=== PATIENT | male | born 1980 | race Caucasian/White ===

== ENCOUNTER 2017-08-29 03:00 | Inpatient (IN) | payer OTHER ==
[2017-08-29] MEDS ORDERED: SODIUM CHLORIDE 0.9% 500 ML INFUS.BAG IV ONE ×5 (03:04→06:54)
[2017-08-29] MEDS ORDERED: ONDANSETRON 4 MG/2 ML VIAL IVPB ONE (03:05)
--- NOTE | 2017-08-29 03:15 | PDOC ---
History of Present Illness - General Chief Complaint: Nausea/Vomiting Stated Complaint: NAUSEA/VOMITING Past History - Travel Traveled outside of the country in the last 30 days: No Close contact w/someone who was outside of country & ill: No - Past Medical History Allergies/Adverse Reactions: Allergies Allergy/AdvReac Type Severity Reaction Status Date / Time No Known Allergies Allergy Unverified 08/29/17 03:37 Home Medications: Ambulatory Orders NK [No Known Home Medication] 08/29/17 Review of Systems - Review of Systems Constitutional: Yes: Malaise. No: Symptoms Reported, See HPI, Chills, Diaphoresis, Fever, Loss of Appetite, Night Sweats, Weakness, Weight Stable, Unintentional Wgt. Loss, Unexplained wgt Loss, Other HEENTM: No: Symptoms Reported, See HPI, Eye Pain, Blurred Vision, Tearing, Recent change in vision, Double Vision, Cataracts, Ear Pain, Ocular Prothesis, Ear Discharge, Nose Pain, Nose Congestion, Tinnitus, Nose Bleeding, Hearing Loss , Throat Pain, Throat Swelling, Mouth Pain, Dental Problems, Difficulty Swallowing, Mouth Swelling, Other Respiratory: No: Symptoms reported, See HPI, Cough, Orthopnea, Shortness of Breath, SOB with Exertion, SOB at Rest, Stridor, Wheezing, Productive cough, Hemoptysis, Other Cardiac (ROS): No: Symptoms Reported, See HPI, Chest Pain, Edema, Irregular Heart Rate, Lightheadedness, Palpitations, Syncope, Chest Tightness, Other ABD/GI: Yes: Abdominal Distended, Diarrhea, Vomiting, Abdominal cramping. No: Symptoms Reported, See HPI, Abd. Pain w/ defecation, Blood Streaked Bowels, Constipated, Difficulty Swallowing, Nausea, Poor Appetite, Poor Fluid Intake, Rectal Bleeding, Indigestion, Tarry Stools, Other : No: Symptoms Reported, See HPI, Burning, Dysuria, Discharge, Frequency, Flank Pain, Hematuria, Incontinence, Pain, Urgency, Testicular Mass, Testicular Swelling, Lesions, Testicular Pain, Other Musculoskeletal: No: Symptoms Reported, See HPI, Back Pain, Gout, Joint Pain, Joint Swelling, Muscle Pain, Muscle Weakness, Neck Pain, Joint Stiffness, Other Integumentary: No: Symptoms Reported, See HPI, Bruising, Change in Color, Change in Hair/Nails, Dryness, Erythema, Flushing, Lesions, Lumps, Pallor, Pruritus, Rash, Sweating, Other Neurological: No: Symptoms reported, See HPI, Headache, Numbness, Paresthesia, Pre-Existing Deficit, Seizure, Tingling, Tremors, Weakness, Unsteady Gait, Ataxia, Dizziness, Other *Physical Exam - Physical Exam General Appearance: Yes: Nourished, Appropriately Dressed, Mild Distress, Obese HEENT: positive: EOMI, KURT, Normal ENT Inspection, Normal Voice, Symmetrical, TMs Normal, Pharynx Normal. 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 Family believes that pt has food poisoning. Pt has diffuse right sided abdominal pain. 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 Comes with girlfriend (also MR?) and her brother who is full mental development. They and patient tell me that his abdomen is no more distended than usual. Pt is overweight, but his abdomen seems distended to me. Pt is afebrile. He has vomited multiple times and watery diarrhea multiple times since after 10PM. Pt's labs show WBC of 25+; given his right sided tenderness I administered 1 dose of zosyn in case of obstruction/diverticulitis/colitis/ appendicitis. CT scan ordered. Pt vomited his oral contrast after drinking just one cup and cannot tolerate it. Pt will get a dry CT scan abd pelvis - tech just arrived 10 min ago to do the study. 08/29/17 05:46 Patient Name: MAT NEUMANN THIS IS A PRELIMINARY REPORT FROM [facility] DATE OF SERVICE: 2017-08-29 04:46:24 IMAGES: [id number] EXAM: CT ABDOMEN AND PELVIS without contrast HISTORY: Abdominal pain COMPARISON: None. FINDINGS: Lung bases are clear. The visualized cardiac chambers are normal size and configuration. The liver is lobulated, suggesting cirrhosis. Spleen is small. No ascites. Status post cholecystectomy without biliary duct dilation. Normal unenhanced pancreas, adrenal glands and kidneys. There are several dilated loops of small bowel measuring up to 3.9 cm suggesting a small bowel obstruction or focal ileus. No bowel inflammation. There is diffuse liquid stool and air throughout the colon. There is no aortic aneurysm. There is no significant retroperitoneal lymphadenopathy. The appendix is 7 mm in diameter, at the upper limit of normal there may be minimal inflammation. As mildly suspicious for appendicitis. The urinary bladder and prostate gland are normal. No pelvic free fluid is identified. There is no significant pelvic lymphadenopathy. IMPRESSION: Cirrhosis without findings for portal venous hypertension. Mild suspicion for appendicitis. Questionable small bowel obstruction or focal ileus without abscess, free air or discrete transition point. Diffuse liquid stool suggests a diarrheal illness. THIS DOCUMENT HAS BEEN ELECTRONICALLY SIGNED 08/29/17 06:22 MAT NEUMANN Addendum: There are tiny fat-containing umbilical and ventral hernias which may be minimally inflamed Surgeon Jarrod is aware of the patient. He states that he is coming in to see the patient. 08/29/17 06:26 Pt has a lactic acid elevation 2.5 Pt received 3 L in the first 3 hrs that he was here. He will be given a 4th Liter of saline. 08/29/17 06:54 Surgeon at the [facility]. Pt will be signed out to the day ER doctor, who will follow CXR and speak to surgical consult and get pt admitted/dispositioned. 08/29/17 06:58 Surgeon will discuss plan with day ER doctor. He is still assessing the patient. *DC/Admit/Observation/Transfer Diagnosis at time of Disposition: Sepsis, Fatty hernia of linea alba, Diarrhea, Vomiting, Tachycardia, Dehydration - Discharge Dispostion Condition at time of disposition: Guarded - Referrals Referrals: STAFF,NOT ON [Primary Care Provider] - - Patient Instructions - Post Discharge Activity
[2017-08-29 03:29] LABS: MCH 32.4 pg (25.7-33.7); MCHC 33.6 g/dl (32.0-35.9); MEAN CELL VOLUME 96.3 fl (80-96); MEAN PLT VOLUME 9.1 fl (7.5-11.1); PLATELET COUNT 300 K/MM3 (134-434); RDW 14.8 % (11.9-15.9); WHITE BLOOD COUNT 25.8 K/mm3 (4.0-10.0)
[2017-08-29 03:41] VITALS: BMI 38.7
[2017-08-29] MEDS ORDERED: PIPERACILLIN/TAZOB 3.375 GM/50 ML PRE-DOCKED IVPB ONE ×3 (03:50→12:51)
[2017-08-29] MEDS ORDERED: PIPERACILLIN/TAZOBACTAM 3.375 GM VIAL IVPB ONE (03:54)
[2017-08-29 04:45] LABS: ANION GAP 9 (8-16); CALCIUM 8.3 mg/dL (8.5-10.1); CO2 26 mmol/L (21-32); CREATININE 1.1 mg/dL (0.7-1.3); GLUCOSE,RANDOM 141 mg/dL (74-106); TOT PROT 7.2 g/dl (6.4-8.2)
[2017-08-29 04:46] LABS: ALBUMIN 3.8 g/dl (3.4-5.0); ALK PHOS 60 U/L (45-117); AMYLASE 30 U/L (25-115); BILIRUBIN,TOTAL 1.1 mg/dL (0.2-1.0); SGOT/AST 34 U/L (15-37); SGPT/ALT 56 U/L (12-78)
[2017-08-29 05:21] LABS: CPK 121 IU/L (39-308); TROPONIN I < 0.02 ng/ml (0.00-0.05)
[2017-08-29] MEDS ORDERED: LIDOCAINE HCL 2% JELLY (5 ML/TUBE) ONE (07:06)
[2017-08-29] MEDS ORDERED: ACETAMINOPHEN 1000 MG/100 ML VIAL (NON FORMULARY) IVPB ONE (07:19)
[2017-08-29] MEDS ORDERED: ACETAMINOPHEN INJECTION 100 ML IVPB ONE (07:20)
--- NOTE | 2017-08-29 07:21 | CONSULT ---
Consult Consult Specialty:: general surgery Referred by:: Deric Reason for Consultation:: abdominal pain - History of Present Illness Chief Complaint: nausea and vomiting after dinner last night History of Present Illness: 37yo male PMH mitral valve replacement, down sydrome, s/p cholecytectomy presents to ED with 7-8 episodes of nauesa and vomiting after dinner at 10pm. He reports having consumed some shellfish as well 2/4 people who consumed the same thing developed diarrhea to varying degrees. He has some associated abdominal pain that is diffuse. He has had some loose bowel movements. He has also been febrile and tachycardic since his presentation the the emergency department. he denies any chest pain, SOB, palpitations. we were asked to assess when the CT scan resulted with a prominent appendix. 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: Other (developmental delay ) Cardio/Vascular: Yes: Other (heart valve replacement) - Past Surgical History Past Surgical History: Yes: Valve Replacement - Alcohol/Substance Use Hx Alcohol Use: No History of Substance Use: reports: None - Smoking History Smoking history: Never smoked - Social History Place of : [facility] History of Recent Travel: No Home Medications - Allergies Allergies/Adverse Reactions: Allergies Allergy/AdvReac Type Severity Reaction Status Date / Time No Known Allergies Allergy Unverified 08/29/17 03:37 - Home Medications Home Medications: Ambulatory Orders NK [No Known Home Medication] 08/29/17 Review of Systems - Review of Systems Constitutional: reports: Fever Eyes: denies: Blurred Vision, Recent Change in Vision HENT: denies: Difficult Swallowing, Throat Pain Neck: denies: Lumps, Swollen Glands Cardiovascular: reports: Palpitations. denies: Chest Pain Respiratory: denies: Cough, SOB Gastrointestinal: reports: Abdominal Pain, Diarrhea. denies: Bloating Genitourinary: denies: Burning, Discharge Musculoskeletal: denies: Joint Pain, Joint Swelling Integumentary: denies: Lesions, Rash Endocrine: denies: Unexplained Weight Gain, Unexplained Weight Loss Psychiatric: denies: Anxiety, Depression Pain Intensity: 4 Physical Exam Vital Signs: Vital Signs Temperature 100.1 F H 08/29/17 06:30 Pulse Rate 108 H 08/29/17 06:30 Respiratory Rate 18 08/29/17 06:30 Blood Pressure 124/50 08/29/17 06:30 O2 Sat by Pulse Oximetry (%) 96 08/29/17 06:30 Vital Signs Period Temp Pulse Resp BP Sys/Emanuel Pulse Ox Last 24 Hr 98.7 F-100.1 F 108-118 14-18 101-139/50-64 92-98 Constitutional: Yes: Well Nourished, Calm, Diaphoresis, Mild Distress, Obese Eyes: Yes: Conjunctiva Clear, EOM Intact HENT: Yes: Atraumatic, Normocephalic Neck: Yes: Supple, Trachea Midline Cardiovascular: Yes: Regular Rate and Rhythm, Murmur, S1, S2 Respiratory: Yes: Regular, CTA Bilaterally Gastrointestinal: Yes: Abdomen, Obese, Distention, Hyperactive Bowel Sounds, Tenderness (diffuse), Vomiting, Other (supra umbilical hernia). No: Tenderness , Epigastrium, Tenderness, Rebound Musculoskeletal: Yes: Joint Swelling. No: Muscle Pain, Muscle Weakness Extremities: No: Cool, Cyanosis Edema: No Integumentary: Yes: Incision (well healed cholecystectomy port sites). No: Body Piercing, Tattoos Neurological: Yes: Alert, Oriented Psychiatric: Yes: Alert, Oriented Labs: CBC, BMP 08/29/17 02:48 08/29/17 02:48 Abnormal Lab Results 08/29/17 08/29/17 08/29/17 02:48 02:48 05:05 WBC 25.8 H MCV 96.3 H BUN 23 H Random Glucose 141 H Lactic Acid 2.5 H* Calcium 8.3 L Total Bilirubin 1.1 H CBC,CMP WBC 24.1 K/mm3 (4.0-10.8) H 08/29/17 06:40 RBC 4.42 M/mm3 (4.00-5.60) 08/29/17 06:40 Hgb 14.4 GM/dl (11.7-16.9) 08/29/17 06:40 Hct 42.9 % (35.4-49) 08/29/17 06:40 MCV 97.2 fl (80-96) H 08/29/17 06:40 MCH 32.5 pg (25.7-33.7) 08/29/17 06:40 MCHC 33.5 g/dl (32.0-35.9) 08/29/17 06:40 RDW 14.4 % (11.9-15.9) 08/29/17 06:40 Plt Count 273 K/MM3 (134-434) 08/29/17 06:40 MPV 9.6 fl (7.5-11.1) 08/29/17 06:40 Total Counted 100 08/29/17 02:48 Neutrophils % No Result Required. 08/29/17 06:40 Neutrophils % (Manual) 83.0 % (42.8-82.8) H 08/29/17 02:48 Band Neutrophils % 12.0 % 08/29/17 02:48 Lymphocytes % No Result Required. 08/29/17 06:40 Lymphocytes % (Manual) 2.0 % (8-40) L 08/29/17 02:48 Monocytes % (Manual) 3 % (3.8-10.2) L 08/29/17 02:48 Platelet Estimate Adequate 08/29/17 02:48 Sodium 138 mmol/L (136-145) 08/29/17 02:48 Potassium 4.4 mmol/L (3.5-5.1) 08/29/17 02:48 Chloride 103 mmol/L (98-107) 08/29/17 02:48 Carbon Dioxide 26 mmol/L (21-32) 08/29/17 02:48 Anion Gap 9 (8-16) 08/29/17 02:48 BUN 23 mg/dL (7-18) H 08/29/17 02:48 Creatinine 1.1 mg/dL (0.7-1.3) 08/29/17 02:48 Creat Clearance w eGFR > 60 (>60) 08/29/17 02:48 Random Glucose 141 mg/dL (74-106) H 08/29/17 02:48 Lactic Acid 2.5 mmol/L (0.4-2.0) H* 08/29/17 05:05 Calcium 8.3 mg/dL (8.5-10.1) L 08/29/17 02:48 Total Bilirubin 1.1 mg/dL (0.2-1.0) H 08/29/17 02:48 AST 34 U/L (15-37) 08/29/17 02:48 ALT 56 U/L (12-78) 08/29/17 02:48 Alkaline Phosphatase 60 U/L (45-117) 08/29/17 02:48 Creatine Kinase 121 IU/L (39-308) 08/29/17 02:48 Troponin I < 0.02 ng/ml (0.00-0.05) 08/29/17 02:48 Total Protein 7.2 g/dl (6.4-8.2) 08/29/17 02:48 Albumin 3.8 g/dl (3.4-5.0) 08/29/17 02:48 Total Amylase 30 U/L (25-115) 08/29/17 02:48 Lipase 85 U/L (73-393) 08/29/17 02:48 Imaging - Results X-ray: Image Reviewed Cat Scan: Report Reviewed, Image Reviewed (cholecystectomy clips, fat containg incisional hernia, prominent appendix) Problem List - Problems (1) Acute appendicitis Assessment/Plan: 37 yo male PMH heart valve as an infant, down's, s/p lap cholecystectomy 10 years ago presents with abdominal pain and vomiting after dinner last night. Reviewed the Ct scan with in house radiologist who feels that there may prominent appendix. NPO and IVF hydration/ resuscitation IV antibiotcs OR for Laparoscopic appendectomy Medical consult hospitalist Code(s): K35.80 - UNSPECIFIED ACUTE APPENDICITIS (2) Abdominal pain in male Code(s): R10.9 - UNSPECIFIED ABDOMINAL PAIN (3) Abdominal pain of unknown etiology Code(s): R10.9 - UNSPECIFIED ABDOMINAL PAIN (4) Vomiting Code(s): R11.10 - VOMITING, UNSPECIFIED (5) Dehydration Code(s): E86.0 - DEHYDRATION (6) Diarrhea Code(s): R19.7 - DIARRHEA, UNSPECIFIED
--- NOTE | 2017-08-29 08:01 | PDOC ---
*Physical Exam - Vital Signs Last Vital Signs Temp Pulse Resp BP Pulse Ox 100.1 F H 110 H 18 104/53 97 08/29/17 06:30 08/29/17 07:22 08/29/17 07:22 08/29/17 07:22 08/29/17 07:22 ED Treatment Course - LABORATORY CBC & Chemistry Diagram: 08/29/17 06:40 08/29/17 06:40 - ADDITIONAL ORDERS Additional order review: Laboratory Results 08/29/17 08/29/17 08/29/17 05:05 02:48 02:48 Sodium 138 Potassium 4.4 Chloride 103 Carbon Dioxide 26 Anion Gap 9 BUN 23 H Creatinine 1.1 Creat Clearance w eGFR > 60 Random Glucose 141 H Lactic Acid 2.5 H* Calcium 8.3 L Total Bilirubin 1.1 H AST 34 ALT 56 Alkaline Phosphatase 60 Creatine Kinase 121 Troponin I < 0.02 Total Protein 7.2 Albumin 3.8 Total Amylase 30 Lipase 85 08/29/17 02:48 RBC 4.84 MCV 96.3 H MCHC 33.6 RDW 14.8 MPV 9.1 Neutrophils % No Result Required. Lymphocytes % No Result Required. - Medications Given in the ED: ED Medications Discontinued Medications Generic Name Dose Route Start Last Admin Trade Name Freq PRN Reason Stop Dose Admin Acetaminophen 1,000 mg 08/29/17 07:19 08/29/17 07:23 Ofirmev Injection - IVPB 08/29/17 07:20 1,000 mg ONCE ONE Administration Ondansetron HCl 4 mg 08/29/17 03:05 08/29/17 03:09 Zofran Injection IVPB 08/29/17 03:06 4 mg ONCE ONE Administration Piperacillin Sod/Tazobactam Sod 3.375 gm 08/29/17 03:50 08/29/17 04:03 Zosyn 3.375gm Ivpb (Pre-Docked) IVPB 08/29/17 03:51 3.375 gm ONCE ONE Administration Protocol Sodium Chloride 1,000 ml 08/29/17 03:04 08/29/17 03:09 Normal Saline - IV 08/29/17 03:05 1,000 ml ONCE ONE Administration Sodium Chloride 500 ml 08/29/17 04:51 08/29/17 04:52 Normal Saline - IV 08/29/17 04:52 500 ml ONCE ONE Administration Sodium Chloride 1,000 ml 08/29/17 06:52 08/29/17 06:56 Normal Saline - IV 08/29/17 06:53 1,000 ml ONCE ONE Administration Sodium Chloride 500 ml 08/29/17 06:53 08/29/17 06:00 Normal Saline - IV 08/29/17 06:54 500 ml ONCE ONE Administration Sodium Chloride 1,000 ml 08/29/17 06:54 08/29/17 05:00 Normal Saline - IV 08/29/17 06:55 1,000 ml ONCE ONE Administration Medical Decision Making - Medical Decision Making 08/29/17 08:[address] Garay, who has discussed with radiology. Will plan for OR for acute appendicitis. T&S and coags sent. Will cont to monitor. 08/29/17 10:54 Pt transported to [facility] for further management as per surgery. *DC/Admit/Observation/Transfer Diagnosis at time of Disposition: Tachycardia, Dehydration Sepsis Qualifiers: Sepsis type: sepsis due to unspecified organism Qualified Code(s): A41.9 - Sepsis, unspecified organism Appendicitis Qualifiers: Appendicitis type: acute appendicitis Acute appendicitis type: unspecified acute appendicitis type Qualified Code(s): K35.80 - Unspecified acute appendicitis - Discharge Dispostion Condition at time of disposition: Guarded Admit: Yes - Referrals Referrals: STAFF,NOT ON [Primary Care Provider] - - Patient Instructions - Post Discharge Activity
[2017-08-29 08:10] LABS: TOTAL CELLS COUNTED 100
[2017-08-29 08:11] LABS: PLATELET ESTIMATE ADEQUATE
[2017-08-29] MEDS ORDERED: morphine CARPU-JECT 2 MG/1 ML DISP.SYRIN IVPUSH PRN (08:25)
[2017-08-29] MEDS ORDERED: LACTATED RINGERS SOLUTION 1,000 ML/1,000 ML INFUS.BAG IV SCH (08:30)
--- NOTE | 2017-08-29 08:32 | HP ---
Admitting History and Physical - Admission Chief Complaint: abdominal pain History of Present Illness: 37yo male PMH mitral valve replacement, down sydrome, s/p cholecytectomy presents to ED with 7-8 episodes of nauesa and vomiting after dinner at 10pm. He reports having consumed some shellfish as well 2/4 people who consumed the same thing developed diarrhea to varying degrees. He has some associated abdominal pain that is diffuse. He has had some loose bowel movements. He has also been febrile and tachycardic since his presentation the the emergency department. he denies any chest pain, SOB, palpitations. we were asked to assess when the CT scan resulted with a prominent appendix. 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: Other (developmental delay ) Cardiovascular: Yes: Other (heart valve replacement) - Past Surgical History Past Surgical History: Yes: Valve Replacement - Smoking History Smoking history: Never smoked - Alcohol/Substance Use Hx Alcohol Use: No History of Substance Use: reports: None - Social History Usual Living Arrangement: Yes: With Spouse History of Recent Travel: No (visiting from [place]) Home Medications - Allergies Allergies/Adverse Reactions: Allergies Allergy/AdvReac Type Severity Reaction Status Date / Time No Known Allergies Allergy Unverified 08/29/17 03:37 - Home Medications Home Medications: Ambulatory Orders NK [No Known Home Medication] 08/29/17 Review of Systems - Review of Systems Constitutional: reports: Diaphoresis, Fever, Malaise. denies: Chills Eyes: denies: Blurred Vision, Recent Change in Vision HENT: denies: Difficult Swallowing, Throat Pain Neck: denies: Lumps, Swollen Glands Cardiovascular: reports: Palpitations. denies: Chest Pain Respiratory: denies: Cough, SOB Gastrointestinal: reports: Abdominal Pain, Bloating, Diarrhea Genitourinary: denies: Burning, Discharge, Testicular Pain Musculoskeletal: denies: Muscle Pain, Muscle Weakness Integumentary: denies: Lesions, Rash Neurological: denies: Headache, Syncope Endocrine: denies: Unexplained Weight Gain, Unexplained Weight Loss Hematology/Lymphatic: denies: Easily Bruised, Swollen Glands Psychiatric: denies: Anxiety, Depression Physical Examination Vital Signs: Vital Signs Temperature 100.1 F H 08/29/17 06:30 Pulse Rate 110 H 08/29/17 07:22 Respiratory Rate 18 08/29/17 07:22 Blood Pressure 104/53 08/29/17 07:22 O2 Sat by Pulse Oximetry (%) 97 08/29/17 07:22 Vital Signs Period Temp Pulse Resp BP Sys/Emanuel Pulse Ox Last 24 Hr 98.7 F-100.1 F 108-118 14-18 101-139/50-64 92-98 Intake & Output 08/28/17 08/29/17 08/29/17 23:59 07:59 15:59 Intake Total 3100 Balance 3100 Weight 240 lb Intake: IV 3000 SALINE 3000 IVPB 100 Other: Height 5 ft 6 in Body Mass Index (BMI) 38.7 Weight Measurement Method Est/Stated by Patient Constitutional: Yes: Calm, Diaphoresis, Mild Distress, Obese Eyes: Yes: Conjunctiva Clear, EOM Intact HENT: Yes: Atraumatic, Normocephalic Neck: Yes: Supple, Trachea Midline Cardiovascular: Yes: Regular Rate and Rhythm, Murmur, S1, S2 Respiratory: Yes: Regular, CTA Bilaterally Gastrointestinal: Yes: Normal Bowel Sounds, Soft, Tenderness (periumbilical) ...Rectal Exam: Yes: Deferred Renal/: No: CVA Tenderness - Left, CVA Tenderness - Right Breast(s): Yes: WNL, Left, Right Musculoskeletal: No: Muscle Pain, Muscle Weakness Edema: No Peripheral Pulses WNL: Yes Peripheral Pulses: Left Doralis Pedis: 2+, Right Dorsalis Pedis: 2+ Wound/Incision: Yes: Other (healed port sites cholecystectomy with supraumbilical hernia fat containing) Neurological: Yes: Alert, Oriented Psychiatric: Yes: Alert, Oriented Imaging - Results Chest X-ray: Report Reviewed, Image Reviewed Cat Scan: Report Reviewed, Image Reviewed Problem List - Problems (1) Acute appendicitis Assessment/Plan: 37 yo male PMH heart valve as an , down's, s/p lap cholecystectomy 10 years ago presents with abdominal pain and vomiting after dinner last night. Reviewed the Ct scan with in house radiologist who feels that there may prominent appendix. NPO and IVF hydration/ resuscitation IV antibiotcs OR for Laparoscopic appendectomy Medical consult hospitalist Code(s): K35.80 - UNSPECIFIED ACUTE APPENDICITIS (2) Abdominal pain in male Code(s): R10.9 - UNSPECIFIED ABDOMINAL PAIN (3) Abdominal pain of unknown etiology Code(s): R10.9 - UNSPECIFIED ABDOMINAL PAIN (4) Vomiting Code(s): R11.10 - VOMITING, UNSPECIFIED (5) Dehydration Code(s): E86.0 - DEHYDRATION (6) Diarrhea Code(s): R19.7 - DIARRHEA, UNSPECIFIED
[2017-08-29 08:44] LABS: MCH 32.5 pg (25.7-33.7); MCHC 33.5 g/dl (32.0-35.9); MEAN CELL VOLUME 97.2 fl (80-96); MEAN PLT VOLUME 9.6 fl (7.5-11.1); PLATELET COUNT 273 K/MM3 (134-434); RDW 14.4 % (11.9-15.9); WHITE BLOOD COUNT 24.1 K/mm3 (4.0-10.8)
[2017-08-29] MEDS ORDERED: SODIUM CHLORIDE 2,000 ML IV STA (08:55)
[2017-08-29 09:13] LABS: ALBUMIN 3.3 g/dl (3.5-5.0); ALK PHOS 40 U/L (32-92); ANION GAP 7 (8-16); BILIRUBIN,TOTAL 1.4 mg/dl (0.2-1.0); CALCIUM 7.5 mg/dl (8.4-10.2); CO2 23 mmol/L (22-28); CREATININE 1.1 mg/dl (0.6-1.3); GLUCOSE,RANDOM 133 mg/dl (74-106); SGOT/AST 28 U/L (10-42); SGPT/ALT 38 U/L (10-40); TOT PROT 5.8 g/dl (6.4-8.3)
[2017-08-29 09:29] LABS: PH,URINE 5.5 (4.5-8); URINE APPEARANCE Clear; URINE BILIRUBIN Negative (NEGATIVE); URINE BLOOD Negative (NEGATIVE); URINE GLUCOSE (UA) Negative (NEGATIVE); URINE KETONE Negative (NEGATIVE); URINE LEUK ESTERASE Negative (NEGATIVE); URINE NITRITE Negative (NEGATIVE); URINE PROTEIN Negative (NEGATIVE); URINE UROBILINOGEN 0.2 (0.2-1.0)
[2017-08-29 09:31] LABS: URINE COLOR YELLOW
[2017-08-29 09:38] LABS: PLATELET ESTIMATE ADEQUATE
[2017-08-29 10:01] LABS: ACTIVATED PTT 25.4 SECONDS (24.0-38.9)
[2017-08-29 10:11] LABS: INR 1.32 (0.82-1.09); PROTHROMBIN TIME (PATIENT) 14.7 SEC (10.2-13.0)
[2017-08-29] MEDS ORDERED: PIPERACILLIN/TAZOB 4.5 GM/100 ML PREMIX BAG IVPB ONE ×2 (10:27→14:56)
[2017-08-29] MEDS ORDERED: BUPIVACAINE HCL/PF 0.5% (5MG/ML) 10 ML VIAL ONE (11:23)
--- NOTE | 2017-08-29 11:59 | CONSULT ---
Consult - History of Present Illness History of Present Illness: 37 y/o male with h/o mr s/p vsd repair and mvr who presents with sudden onset of abdominal pain. 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: Other (developmental delay ) Cardio/Vascular: Yes: Other (heart valve replacemnt-vsd) - Past Surgical History Past Surgical History: Yes: Valve Replacement - Alcohol/Substance Use Hx Alcohol Use: No History of Substance Use: reports: None - Smoking History Smoking history: Never smoked - Social History History of Recent Travel: No (visiting from [place]) Home Medications - Allergies Allergies/Adverse Reactions: Allergies Allergy/AdvReac Type Severity Reaction Status Date / Time No Known Allergies Allergy Unverified 08/29/17 03:37 - Home Medications Home Medications: Ambulatory Orders NK [No Known Home Medication] 08/29/17 Review of Systems - Review of Systems Cardiovascular: denies: Chest Pain, Edema Respiratory: denies: SOB, SOB on Exertion Gastrointestinal: reports: Abdominal Pain Physical Exam Vital Signs: Vital Signs Temperature 99.1 F 08/29/17 10:20 Pulse Rate 111 H 08/29/17 10:20 Respiratory Rate 20 08/29/17 10:20 Blood Pressure 106/54 08/29/17 10:20 O2 Sat by Pulse Oximetry (%) 97 08/29/17 09:27 Cardiovascular: Yes: Regular Rate and Rhythm, Murmur Respiratory: Yes: Regular, CTA Bilaterally Gastrointestinal: Yes: Normal Bowel Sounds, Soft, Abdomen, Obese, Distention, Tenderness Labs: CBC, BMP 08/29/17 06:40 08/29/17 06:40 Imaging - Results X-ray: Report Reviewed Cat Scan: Report Reviewed Problem List - Problems (1) Acute appendicitis Assessment/Plan: IV ABX SURGICAL INTERVENTION TODAY MONITOR Code(s): K35.80 - UNSPECIFIED ACUTE APPENDICITIS (2) Sepsis Assessment/Plan: ABOVE Code(s): A41.9 - SEPSIS, UNSPECIFIED ORGANISM Qualifiers: Sepsis type: sepsis due to unspecified organism Qualified Code(s): A41.9 - Sepsis, unspecified organism (3) Heart valve replaced Assessment/Plan: ECHO MAYBE DONE POSTOP CARDIO Code(s): Z95.2 - PRESENCE OF PROSTHETIC HEART VALVE (4) H/O ventricular septal defect Code(s): Z87.74 - PERSONAL HISTORY OF CONGENITAL MALFORM OF HEART AND CIRC SYS (5) Abdominal pain in male Code(s): R10.9 - UNSPECIFIED ABDOMINAL PAIN Assessment/Plan NO ABSOLUTE CONTRAINDICATION FOR PROCEDURE
[2017-08-29] MEDS ORDERED: DEXAMETHASONE SOD PHOSPHATE 4 MG/1 ML VIAL ONE (12:10)
[2017-08-29] MEDS ORDERED: ROCURONIUM BROMIDE 50 MG/5 ML VIAL ONE (12:11)
[2017-08-29] MEDS ORDERED: fentaNYL CITRATE 250 MCG/5 ML VIAL ONE (12:11)
[2017-08-29] MEDS ORDERED: PROPOFOL 20 ML ONE ×2 (12:11)
[2017-08-29] MEDS ORDERED: SUCCINYLCHOLINE CHLORIDE 200 MG/10 ML VIAL ONE ×4 (12:11→12:12)
[2017-08-29] MEDS ORDERED: LIDOCAINE HCL/PF 2% SDV 5ML VIAL ONE (12:14)
[2017-08-29] MEDS ORDERED: ALBUMIN HUMAN 5% 250 ML IV SOLUTION IVPB ONE (12:52)
[2017-08-29] MEDS ORDERED: GLYCOPYRROLATE 0.2 MG/1 ML VIAL ONE ×3 (13:15→13:43)
[2017-08-29] MEDS ORDERED: NEOSTIGMINE METHYLSULFATE 0.5 MG/ML - 10 ML MDV ONE (13:15)
[2017-08-29] MEDS ORDERED: ALBUMIN HUMAN 5% 250 ML IV SOLUTION IVPB SCH (13:30)
[2017-08-29] MEDS ORDERED: ONDANSETRON 4 MG/2 ML VIAL IVPUSH PRN ×2 (14:05→14:55)
[2017-08-29] MEDS ORDERED: PROMETHAZINE HCL 25 MG/1 ML VIAL IVPUSH PRN (14:05)
[2017-08-29] MEDS ORDERED: LACTATED RINGERS SOLUTION 1,000 ML IV SCH ×2 (14:15→14:55)
--- NOTE | 2017-08-29 14:37 | OP ---
Operative Note - Note: Operative Date: 08/29/17 Pre-Operative Diagnosis: acute appendicitis Operation: Laparoscopic Appendectomy Findings: mid appendix started to leak sebastian pus during dissection Implants: none Surgeon: Jessee Garay Anesthesia: Local (marcaine 0.5% 10 ml) Specimens Removed: perforated appendix Estimated Blood Loss (mls): 15 Drains & Tubes with Location: CAROLYN size 10 flat Right para colic, hester, ngt Fluid Volume Replaced (mls): 2,000 Operative Report Dictated: Yes
[2017-08-29 15:28] LABS: MCH 33.1 pg (25.7-33.7); MCHC 33.7 g/dl (32.0-35.9); MEAN PLT VOLUME 9.1 fl (7.5-11.1); PLATELET COUNT 226 K/MM3 (134-434); RDW 15.2 % (11.9-15.9); WHITE BLOOD COUNT 22.3 K/mm3 (4.0-10.0)
[2017-08-29] MEDS ORDERED: PIPERACILLIN/TAZOB 4.5 GM/100 ML PRE-DOCKED IVPB ONE (15:30)
[2017-08-29] MEDS ORDERED: PIPERACILLIN/TAZOB 3.375 GM 3.375 GM/50 ML BAG IVPB ONE ×2 (15:45→18:00)
[2017-08-29 15:51] LABS: ALBUMIN 3.1 g/dl (3.4-5.0); ALK PHOS 40 U/L (45-117); ANION GAP 5 (8-16); BILIRUBIN,TOTAL 1.2 mg/dL (0.2-1.0); CO2 26 mmol/L (21-32); GLUCOSE,RANDOM 128 mg/dL (74-106); MAGNESIUM 1.7 mg/dL (1.8-2.4); SGOT/AST 20 U/L (15-37); SGPT/ALT 37 U/L (12-78); TOT PROT 5.6 g/dl (6.4-8.2)
[2017-08-29 15:52] LABS: PHOSPHOROUS 2.6 mg/dL (2.5-4.9)
[2017-08-29 15:53] LABS: TROPONIN I < 0.02 ng/ml (0.00-0.05)
[2017-08-29 15:54] LABS: CALCIUM 6.4 mg/dL (8.5-10.1)
[2017-08-29] MEDS ORDERED: MAGNESIUM SULF 50% (8.12 MEQ/2 ML-1 GM VIAL) IVPB ONE (16:27)
[2017-08-29] MEDS ORDERED: MAGNESIUM SULF 50% (8.12 MEQ/2 ML-1 GM VIAL) ONE (16:38)
[2017-08-29 17:12] LABS: PLATELET ESTIMATE ADEQUATE; REACTIVE LYMPHOCYTES 1 % (0-80); TOTAL CELLS COUNTED 100
[2017-08-29] MEDS ORDERED: CALCIUM GLUCONATE 10% - 1,000 MG/10 ML VIAL IVPB ONE (17:30)
[2017-08-29] MEDS ORDERED: PT OWN MED DRAWER 7, Y5N ONE (17:39)
[2017-08-29] MEDS ORDERED: PIPERACILLIN/TAZOB 3.375 GM 3.375 GM in DEXTROSE 5%-WATER - 50 ML IVPB ONE (18:00)
--- NOTE | 2017-08-29 18:24 | CON.ID ---
Consult Consult Specialty:: Infectious Disease Reason for Consultation:: Acute appendicitis - History of Present Illness Chief Complaint: nausea/vomiting/abd pain History of Present Illness: Patient seen and examined. All notes/lab and radiology results noted. Case discussed earlier with Dr. Luque. This is a 37yo male with Downs Syndrome with PMH of a repaired VSD during childhood, mitral valve replacement, cholecystectomy who presented with c/o nausea, vomiting, and abdominal pain which began after dinner the night before. He also reported loose BMs. In the ER he was noted to be febrile, tachycardic with an elevated wbc. CT Abd revealed inflammation of the appendix along with other nonspecific findings. Pt was started on antibiotics and taken to the OR for lap appendectomy and was noted to have purulent drainage from the appendix with dissection. Currently patient is in the ICU, alert,without acute distress. 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 ) Cardio/Vascular: Yes: Other (heart valve replacemnt-vsd) Pulmonary: No: Asthma, Bronchitis, Cancer, COPD, O2 Dependent, Pneumonia, Previously Intubated, Pulmonary Embolus, Pulmonary Fibrosis, Sleep Apnea, Other Gastrointestinal: Yes: Other (s/p cholecystectomy) Renal/: No: Renal Failure, Renal Inusuff, BPH, Cancer, Hematuria, Hemodialysis , Neurogenic Bladder, Renal Calculi, UTI, Other Heme/Onc: No: Anemia, B12 Deficiency, Bleeding Disorder, Cancer, Current Chemotherapy, Current Radiation Therapy, Hemochromatosis, Hypercoaguable State, Myeloproliferative Synd, Sickle Cell Disease, Sickle Cell Trait, Thrombocytopenia, Other Infectious Disease: No: AIDS, C-Diff, Herpes Zoster, HIV, MRSA, STD's, Tuberculosis, VREF, Other Psych: No: Addictions, Anxiety, Bipolar, Depression, Panic, Psychosis, Schizophrenia, Other Musculoskeletal: No: Bursitis, Chronic low back pain, Hemiparesis, Hemiplegia, Osteoarthritis, Paraplegia, Other Rheumatology: No: Fibromyalgia, Gout, Lupus, Rheumatoid Arthritis, Sarcoidosis, Vasculitis, Other ENT: No: Allergic Rhinitis, Sinusitis, Other Endocrine: No: Juan's Disease, [place]'s Disease, Diabetes Insipidus, Diabetes Mellitus, Hyperparathyroidism, Hyperthyroidism, Hypothyroidism, Osteopenia, SIADH, Other Dermatology: No: Basal Cell, Cellulitis, Eczema, Melanoma, Psoriasis, Squamous Cell, Other - Past Surgical History Past Surgical History: Yes: Cholecystectomy, Valve Replacement - Alcohol/Substance Use Hx Alcohol Use: No History of Substance Use: reports: None - Smoking History Smoking history: Never smoked - Social History History of Recent Travel: No (visiting from [place]) Home Medications - Allergies Allergies/Adverse Reactions: Allergies Allergy/AdvReac Type Severity Reaction Status Date / Time No Known Allergies Allergy Unverified 08/29/17 03:37 - Home Medications Home Medications: Ambulatory Orders NK [No Known Home Medication] 08/29/17 Family Disease History - Family Disease History Family History: Unable to Obtain Review of Systems - Review of Systems Constitutional: reports: Fever Eyes: reports: No Symptoms. denies: Blind Spots, Blurred Vision, Double Vision , Eye Pain, Floaters, Photophobia, Recent Change in Vision, Other HENT: reports: No Symptoms. denies: Difficult Swallowing, Ear Discharge, Ear Pain, Epistaxis, Gingival Bleeding, Hearing Loss, Mouth Swelling, Nasal Congestion, Ocular Prosthesis, Throat Pain, Toothache, Ringing in Ears, Other Neck: reports: No Symptoms. denies: Decreased ROM, Lumps, Pain on Movement, Stiffness, Swollen Glands, Tenderness, Other Cardiovascular: denies: No Symptoms, Chest Pain, Edema, Palpitations, Shortness of Breath, Other Respiratory: denies: No Symptoms, Cough, Exercise Intolerance, Hemoptysis, Orthopnea, PND, Snoring, SOB, SOB on Exertion, Wheezing, Other Gastrointestinal: reports: Abdominal Pain (Rt sided), Nausea, Vomiting Genitourinary: denies: No Symptoms, Burning, Discharge, Dysuria, Flank Pain, Frequency, Hematuria, Incontinence, Lesions, Menses, Pain, Testicular Mass, Testicular Pain, Testicular Swelling, Urgency, Vaginal Bleeding, Other Breasts: denies: No Symptoms Reported, See HPI, Breast Implants, Discharge from Nipple, Lumps, Pain, Skin Changes, Other Musculoskeletal: denies: No Symptoms, Back Pain, Crepitus, Decreased ROM, Extremity Pain, Joint Pain, Joint Swelling, Muscle Pain, Muscle Cramps, Muscle Weakness, Other Integumentary: denies: No Symptoms, Blister, Bruising, Change in Color, Eczema, Erythema, Incision, Lesions, Lump, Pallor, Pruritis, Rash, Wound, Other Neurological: denies: No Symptoms, Change in LOC, Change in Speech, Confusion, Dizziness, Headache, Incoordination, Numbness, Parasthesia, Pre-Existing Deficit , Seizure, Syncope, Tremors, Unsteady Gait, Weakness, Other Endocrine: denies: No Symptoms, Excessive Sweating, Flushing, Increased Hunger, Increased Thirst, Intolerance to Cold, Intolerance to Heat, Unexplained Weight Gain, Unexplained Weight Loss, Other Hematology/Lymphatic: denies: No Symptoms, Easily Bruised, Excessive Bleeding, Swollen Glands, Other Psychiatric: denies: No Symptoms, Altered Sleep Pattern, Anxiety, Depression, Hallucinations, Panic, Paranoia, Suicidal, Other Physical Exam Vital Signs: Vital Signs Temperature 99 F 08/29/17 15:20 Pulse Rate 87 08/29/17 16:00 Respiratory Rate 21 08/29/17 16:00 Blood Pressure 126/62 08/29/17 16:00 O2 Sat by Pulse Oximetry (%) 97 08/29/17 15:20 Constitutional: Yes: No Distress, Calm Eyes: Yes: WNL, Conjunctiva Clear HENT: Yes: WNL, Atraumatic, Normocephalic Neck: Yes: Supple Cardiovascular: Yes: Tachycardia. No: WNL, Regular Rate and Rhythm, Bradycardia , Pulse Irregular, Bruit, JVD, Gallop, Murmur, Rub, S1, S2, S3, S4, Varicosities , Other Respiratory: Yes: CTA Bilaterally. No: WNL, Regular, Accessory Muscle Use, Bradypnea, Omid-Ball, Cough, Diminished, Dullness, Hyperresonant, Intubated , [place], Mechanically Ventilated, On BiPap, On Nasal O2, On Venti-Mask, Orthopnea, Poor Air Entry, Rales, Rhonchi, SOB, SOB on Exertion, Stridor, Tachypnea, Wheezes, Other Gastrointestinal: Yes: Distention, Tenderness (RT lower abd), Other (CAROLYN drain with serosanguinous fluid) Renal/: Yes: [place] Present Musculoskeletal: Yes: WNL Extremities: Yes: WNL Edema: No Integumentary: Yes: WNL Wound/Incision: Yes: Dressing Dry and Intact Neurological: Yes: Alert Psychiatric: Yes: Alert Labs: CBC, BMP 08/29/17 14:40 08/29/17 14:40 CMP Sodium 141 mmol/L (136-145) 08/29/17 14:40 Potassium 4.4 mmol/L (3.5-5.1) 08/29/17 14:40 Chloride 110 mmol/L (98-107) H 08/29/17 14:40 Carbon Dioxide 26 mmol/L (21-32) 08/29/17 14:40 Anion Gap 5 (8-16) L 08/29/17 14:40 BUN 18 mg/dL (7-18) D 08/29/17 14:40 Creatinine 1.0 mg/dL (0.7-1.3) 08/29/17 14:40 Creat Clearance w eGFR > 60 (>60) 08/29/17 14:40 Random Glucose 128 mg/dL (74-106) H 08/29/17 14:40 Lactic Acid 1.3 mmol/L (0.4-2.0) 08/29/17 14:40 Calcium 6.4 mg/dL (8.5-10.1) L* D 08/29/17 14:40 Phosphorus 2.6 mg/dL (2.5-4.9) 08/29/17 14:40 Magnesium 1.7 mg/dL (1.8-2.4) L 08/29/17 14:40 Total Bilirubin 1.2 mg/dL (0.2-1.0) H 08/29/17 14:40 AST 20 U/L (15-37) D 08/29/17 14:40 ALT 37 U/L (12-78) D 08/29/17 14:40 Alkaline Phosphatase 40 U/L (45-117) L D 08/29/17 14:40 Creatine Kinase 121 IU/L (39-308) 08/29/17 02:48 Troponin I < 0.02 ng/ml (0.00-0.05) 08/29/17 14:40 Total Protein 5.6 g/dl (6.4-8.2) L D 08/29/17 14:40 Albumin 3.1 g/dl (3.4-5.0) L 08/29/17 14:40 Total Amylase 30 U/L (25-115) 08/29/17 02:48 Lipase 85 U/L (73-393) 08/29/17 02:48 Imaging - Results Cat Scan: Report Reviewed Problem List - Problems (1) Leukocytosis Code(s): D72.829 - ELEVATED WHITE BLOOD CELL COUNT, UNSPECIFIED (2) Fever Code(s): R50.9 - FEVER, UNSPECIFIED (3) Acute appendicitis Code(s): K35.80 - UNSPECIFIED ACUTE APPENDICITIS (4) H/O ventricular septal defect Code(s): Z87.74 - PERSONAL HISTORY OF CONGENITAL MALFORM OF HEART AND CIRC SYS (5) Heart valve replaced Code(s): Z95.2 - PRESENCE OF PROSTHETIC HEART VALVE (6) Sepsis Code(s): A41.9 - SEPSIS, UNSPECIFIED ORGANISM Qualifiers: Sepsis type: sepsis due to unspecified organism Qualified Code(s): A41.9 - Sepsis, unspecified organism (7) Tachycardia Code(s): R00.0 - TACHYCARDIA, UNSPECIFIED Assessment/Plan Pt is a 37 y.o. male with history of Down Syndrome, repaired VSD with mitral valve replacement, cholecystectomy presenting with n/v/d/abd pain, with fever and leukocytosis. Noted to have an inflammed appendix and is now s/p lap appendectomy. Pt noted to have purulent appendix. -- recommend Zosyn 3.375 Gm IV Q6h empirically -- monitor wbc trend, temperatures -- blood cultures rest of care per ICU will f/u Thank you cc time: 40 min
[2017-08-29] MEDS ORDERED: PIPERACILLIN/TAZOB 3.375 GM 3.375 GM in DEXTROSE 5%-WATER - 50 ML IVPB SCH (21:00)
[2017-08-29] MEDS ORDERED: CHLORHEXIDINE GLUCONATE 4% CLEANSER FOR DECOLONIZATION TP SCH (22:00)
--- NOTE | 2017-08-29 22:04 | CONSULT ---
Consult Consult Specialty:: PULM/CCM Referred by:: Dr. Jessee Garay Reason for Consultation:: POD#: ZERO S/p Lap Appy - History of Present Illness Chief Complaint: POD#: ZERO S/p Lap Appy History of Present Illness: Patient seen and examined in the ICU. Mr. Chou is a 37 y/o man w/ Downs Syndrome w/ a PMHx/o a childhood repaired VSD & MVR & s/p cholecytectomy X 10 yrs in the past. The pt presents to the ED this AM w/ N/V/D & Abd pain O/N. In the ED he was notable for Abd pain, WBC > 25, LA = 2.5, febrile, & tachycardic. CTAP showed inflammation of the appendix. Pt was started on abx and taken to the OR. In OR purulent drainage noted from the appendix. Pt is now POD#: ZERO s/p uncomp Lap Appy on Zosyn, doing well. Pt is ready for Transfer to [facility] for continued monitoring & Abx. 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 ) Cardio/Vascular: Yes: Other (heart valve replacemnt-vsd) Pulmonary: No: Asthma, Bronchitis, Cancer, COPD, O2 Dependent, Pneumonia, Previously Intubated, Pulmonary Embolus, Pulmonary Fibrosis, Sleep Apnea, Other Gastrointestinal: Yes: Other (s/p cholecystectomy X 10 yrs in the past) Renal/: No: Renal Failure, Renal Inusuff, BPH, Cancer, Hematuria, Hemodialysis , Neurogenic Bladder, Renal Calculi, UTI, Other Infectious Disease: No: AIDS, C-Diff, Herpes Zoster, HIV, MRSA, STD's, Tuberculosis, VREF, Other Psych: No: Addictions, Anxiety, Bipolar, Depression, Panic, Psychosis, Schizophrenia, Other Musculoskeletal: No: Bursitis, Chronic low back pain, Hemiparesis, Hemiplegia, Osteoarthritis, Paraplegia, Other Rheumatology: No: Fibromyalgia, Gout, Lupus, Rheumatoid Arthritis, Sarcoidosis, Vasculitis, Other ENT: No: Allergic Rhinitis, Sinusitis, Other Endocrine: No: [place]'s Disease, [place]'s Disease, Diabetes Insipidus, Diabetes Mellitus, Hyperparathyroidism, Hyperthyroidism, Hypothyroidism, Osteopenia, SIADH, Other Dermatology: No: Basal Cell, Cellulitis, Eczema, Melanoma, Psoriasis, Squamous Cell, Other - Past Surgical History Past Surgical History: Yes: Cholecystectomy, Valve Replacement - Alcohol/Substance Use Hx Alcohol Use: No History of Substance Use: reports: None - Smoking History Smoking history: Never smoked - Social History History of Recent Travel: No (visiting from [place]) Home Medications - Allergies Allergies/Adverse Reactions: Allergies Allergy/AdvReac Type Severity Reaction Status Date / Time No Known Allergies Allergy Unverified 08/29/17 03:37 - Home Medications Home Medications: Ambulatory Orders NK [No Known Home Medication] 08/29/17 Family Disease History - Family Disease History Family History: Unremarkable Review of Systems - Review of Systems Constitutional: reports: Fever Eyes: reports: No Symptoms HENT: reports: No Symptoms Neck: reports: No Symptoms Cardiovascular: reports: No Symptoms Respiratory: reports: No Symptoms Gastrointestinal: reports: Abdominal Pain, Diarrhea, Nausea, Vomiting Genitourinary: reports: No Symptoms Breasts: reports: No Symptoms Reported Musculoskeletal: reports: Joint Pain Integumentary: reports: No Symptoms Neurological: reports: No Symptoms Endocrine: reports: No Symptoms Hematology/Lymphatic: reports: No Symptoms Psychiatric: reports: No Symptoms Pain Intensity: 9 Physical Exam Vital Signs: Vital Signs Temperature 99 F 08/29/17 18:00 Pulse Rate 92 H 08/29/17 20:00 Respiratory Rate 16 08/29/17 20:00 Blood Pressure 121/68 08/29/17 20:00 O2 Sat by Pulse Oximetry (%) 100 08/29/17 20:00 Constitutional: Yes: Well Nourished, No Distress, Calm Eyes: Yes: WNL, Conjunctiva Clear, EOM Intact HENT: Yes: WNL, Atraumatic, Normocephalic Neck: Yes: WNL, Supple, Trachea Midline Cardiovascular: Yes: WNL, Regular Rate and Rhythm Respiratory: Yes: WNL, Regular, CTA Bilaterally Gastrointestinal: Yes: WNL, Normal Bowel Sounds, Soft, Abdomen, Obese, Other ( Fresh closed Lap choly wounds, CAROLYN Drain w/ serosang drainage.) ...Rectal Exam: Yes: Deferred Renal/: Yes: WNL Breast(s): Yes: WNL Musculoskeletal: Yes: WNL Extremities: Yes: WNL Edema: No Peripheral Pulses WNL: Yes Integumentary: Yes: Incision Wound/Incision: Yes: Clean/Dry, Well Approximated, Brissa Intact, Steri Strips Neurological: Yes: WNL, Oriented ...Motor Strength: WNL Psychiatric: Yes: WNL, Alert, Oriented Labs: CBC, BMP 08/29/17 14:40 08/29/17 14:40 Imaging - Results X-ray: Image Reviewed (CXR 08/29: Clear (My Read)) Cat Scan: Report Reviewed (CTAP 08/29: Lung bases are clear. The visualized cardiac chambers are normal size and configuration. The liver is lobulated, suggesting cirrhosis. Spleen is small. No ascites. Status post cholecystectomy without biliary duct dilation. Normal unenhanced pancreas, adrenal glands and kidneys. There are several dilated loops of small bowel measuring up to 3.9 cm suggesting a small bowel obstruction or focal ileus. No bowel inflammation. There is diffuse liquid stool and air throughout the colon. There is no aortic aneurysm. There is no significant retroperitoneal lymphadenopathy. The appendix is 7 mm in diameter, at the upper limit of normal there may be minimal inflammation. As mildly suspicious for appendicitis. The urinary bladder and prostate gland are normal. No pelvic free fluid is identified. There is no significant pelvic lymphadenopathy. IMPRESSION: Cirrhosis without findings for portal venous hypertension. Mild suspicion for appendicitis. Questionable small bowel obstruction or focal ileus without abscess, free air or discrete transition point. Diffuse liquid stool suggests a diarrheal illness. There are tiny fat-containing umbilical and ventral hernias which may be minimally inflamed.) Problem List - Problems (1) Acute appendicitis Code(s): K35.80 - UNSPECIFIED ACUTE APPENDICITIS (2) Dehydration Code(s): E86.0 - DEHYDRATION (3) H/O ventricular septal defect Code(s): Z87.74 - PERSONAL HISTORY OF CONGENITAL MALFORM OF HEART AND CIRC SYS (4) Heart valve replaced Code(s): Z95.2 - PRESENCE OF PROSTHETIC HEART VALVE (5) Sepsis Code(s): A41.9 - SEPSIS, UNSPECIFIED ORGANISM Qualifiers: Sepsis type: sepsis due to unspecified organism Qualified Code(s): A41.9 - Sepsis, unspecified organism Assessment/Plan ASSESS: This is a 37 y/o man w/ Down Syndrome, childhhod repaired VSD w/ MVR, remote cholecystectomy now POD#: Zero s/p lap appy. PLAN: -Supp FiO2 prn for an SpO2 > 92% -IS -IVFs -IV MSO4 prn for PO Pain -Zofran prn for N/V -Standard Post-Op Lap wound care -Monitor CAROLYN Drain -Zo -F/u Clxrs -trend LA -Monitor UOP -Active T&S -Normal transfusion thresholds -Monitor Coags & LFTs -Advance Diet A/p Surgery -SQH -SCDs -PPI -This is a MED-Surg Patient -Please Transfer this young man out of this ICU where he will be safe from nosocomial infection risk Thank you for this interesting consult. ESTEVANL, ACNP-BC [facility] ICU PULM/CCM
[2017-08-29] MEDS: MUPIROCIN 2% TOPICAL OINTMENT FOR DECOLONIZATION NS SCH (22:15)
[2017-08-30] MEDS: PIPERACILLIN/TAZOB 3.375 GM 3.375 GM in DEXTROSE 5%-WATER - 50 ML IVPB SCH ×4 (00:18→17:38)
[2017-08-30] MEDS: morphine SULFATE 4 MG/ML VIAL IVPUSH PRN ×2 (00:27→07:46)
[2017-08-30 06:47] LABS: BASOPHIL 0.4 % (0-2.0); EOSINOPHIL 0.5 % (0-4.5); MCH 33.3 pg (25.7-33.7); MEAN CELL VOLUME 97.9 fl (80-96); MEAN PLT VOLUME 9.5 fl (7.5-11.1); NEUTROPHILS 89.4 % (42.8-82.8); PLATELET COUNT 230 K/MM3 (134-434); WHITE BLOOD COUNT 19.6 K/mm3 (4.0-10.0)
[2017-08-30 06:54] LABS: ALBUMIN 3.1 g/dl (3.4-5.0); ANION GAP 7 (8-16); CALCIUM 7.7 mg/dL (8.5-10.1); CO2 30 mmol/L (21-32); CREATININE 0.9 mg/dL (0.7-1.3); GLUCOSE,RANDOM 101 mg/dL (74-106); SGOT/AST 20 U/L (15-37); SGPT/ALT 38 U/L (12-78)
[2017-08-30 06:56] LABS: ALK PHOS 40 U/L (45-117); BILIRUBIN,TOTAL 1.1 mg/dL (0.2-1.0); TOT PROT 5.8 g/dl (6.4-8.2)
[2017-08-30] MEDS: MUPIROCIN 2% TOPICAL OINTMENT FOR DECOLONIZATION NS SCH ×2 (09:21→21:42)
--- NOTE | 2017-08-30 09:21 | PN ---
Progress Note, Physician Chief Complaint: abdominal pain History of Present Illness: 37yo male PMH mitral valve replacement, obesity, down's syndrome, s/p cholecystectomy presents to ED with 7-8 episodes of nausea and vomiting after dinner at 10pm. diagnosed with acute appendicitis POD#1 s/p laparoscopic appendectomy. in the ICU complains of periincisonal pain, out of bed sitting, using incentive spirometer, NGT in place no flatus, hester removed. - Current Medication List Current Medications: Active Medications Chlorhexidine Gluconate (Hibiclens For Decolonization -) 1 applic TP HS [facility] Last Admin: 08/29/17 22:16 Dose: 1 applic Lactated Ringer's (Lactated Ringers Solution) 1,000 mls @ 125 mls/hr IV ASDIR [facility] Last Admin: 08/29/17 16:09 Dose: 125 mls/hr Piperacillin Sod/Tazobactam (Sod 3.375 gm/ Dextrose) 50 mls @ 100 mls/hr IVPB Q6H [facility] PRN Reason: Protocol Last Admin: 08/30/17 06:14 Dose: 100 mls/hr Morphine Sulfate (Morphine Sulfate) 4 mg IVPUSH Q4H PRN PRN Reason: PAIN Last Admin: 08/30/17 07:46 Dose: 4 mg Mupirocin (Bactroban Ointment (For Decolonization) -) 1 applic NS BID [facility] Stop: 09/03/17 21:59 Last Admin: 08/29/17 22:15 Dose: 1 applic Ondansetron HCl (Zofran Injection) 4 mg IVPUSH Q6H PRN PRN Reason: NAUSEA AND/OR VOMITING - Objective Vital Signs: Vital Signs Temperature 98.9 F 08/30/17 06:00 Pulse Rate 90 08/30/17 06:00 Respiratory Rate 18 08/30/17 06:00 Blood Pressure 122/60 08/30/17 06:00 O2 Sat by Pulse Oximetry (%) 100 08/29/17 20:00 Vital Signs Period Temp Pulse Resp BP Sys/Emanuel Pulse Ox Last 24 Hr 98.3 F-99.5 F 80-111 14-21 106-126/53-76 97-100 Intake & Output 08/29/17 08/30/17 08/30/17 23:59 07:59 15:59 Intake Total 675 1600 Output Total 730 810 Balance -55 790 Intake: IV 375 1500 Lactated Ringers Solution 375 1500 1,000 ml @ 125 mls/hr IV ASDIR [facility] Rx#: [id number] IVPB 300 100 Output: Gastric Drainage 300 Drainage 30 10 Right Lower Abdomen 30 10 Urine 700 500 Hester 400 500 Void 300 Other: Voiding Method Indwelling Catheter Constitutional: Yes: Well Nourished, No Distress Eyes: Yes: Conjunctiva Clear, EOM Intact HENT: Yes: Atraumatic, Normocephalic Cardiovascular: Yes: Regular Rate and Rhythm, Murmur, S1, S2 Respiratory: Yes: CTA Bilaterally, Diminished (bilaterally poor effort) Gastrointestinal: Yes: Soft, Abdomen, Obese, Hypoactive Bowel Sounds, Other ( incison are clean dressings inplace) ...Rectal Exam: Yes: Deferred Genitourinary: No: CVA Tenderness - Left, CVA Tenderness - Right Extremities: No: Cool, Cyanosis Edema: No Peripheral Pulses WNL: Yes Peripheral Pulses: Left Doralis Pedis: 2+, Right Dorsalis Pedis: 2+ Wound/Incision: Yes: Clean/Dry, Dressing Dry and Intact Neurological: Yes: Oriented Psychiatric: Yes: Alert, Oriented Labs: CBC, BMP 08/30/17 05:00 08/30/17 05:00 INR, PTT INR 1.32 (0.82-1.09) H 08/29/17 08:55 CBC,CMP WBC 19.6 K/mm3 (4.0-10.0) H 08/30/17 05:00 RBC 3.68 M/mm3 (4.00-5.60) L 08/30/17 05:00 Hgb 12.3 GM/dL (11.7-16.9) 08/30/17 05:00 Hct 36.0 % (35.4-49) 08/30/17 05:00 MCV 97.9 fl (80-96) H 08/30/17 05:00 MCH 33.3 pg (25.7-33.7) 08/30/17 05:00 MCHC 34.0 g/dl (32.0-35.9) 08/30/17 05:00 RDW 15.0 % (11.9-15.9) 08/30/17 05:00 Plt Count 230 K/MM3 (134-434) 08/30/17 05:00 MPV 9.5 fl (7.5-11.1) 08/30/17 05:00 Total Counted 100 08/29/17 14:40 Neutrophils % 89.4 % (42.8-82.8) H 08/30/17 05:00 Neutrophils % (Manual) 88.0 % (42.8-82.8) H 08/29/17 14:40 Band Neutrophils % 9.0 % 08/29/17 14:40 Lymphocytes % 4.5 % (8-40) L 08/30/17 05:00 Lymphocytes % (Manual) 1.0 % (8-40) L D 08/29/17 14:40 Monocytes % 5.2 % (3.8-10.2) 08/30/17 05:00 Monocytes % (Manual) 1 % (3.8-10.2) L 08/29/17 14:40 Eosinophils % 0.5 % (0-4.5) 08/30/17 05:00 Basophils % 0.4 % (0-2.0) 08/30/17 05:00 Differential Comment 08/29/17 14:40 Platelet Estimate Adequate 08/29/17 14:40 Platelet Comment 08/29/17 14:40 Sodium 142 mmol/L (136-145) 08/30/17 05:00 Potassium 4.2 mmol/L (3.5-5.1) 08/30/17 05:00 Chloride 105 mmol/L (98-107) 08/30/17 05:00 Carbon Dioxide 30 mmol/L (21-32) 08/30/17 05:00 Anion Gap 7 (8-16) L 08/30/17 05:00 BUN 12 mg/dL (7-18) D 08/30/17 05:00 Creatinine 0.9 mg/dL (0.7-1.3) 08/30/17 05:00 Creat Clearance w eGFR > 60 (>60) 08/30/17 05:00 Random Glucose 101 mg/dL (74-106) D 08/30/17 05:00 Lactic Acid 1.3 mmol/L (0.4-2.0) 08/29/17 14:40 Calcium 7.7 mg/dL (8.5-10.1) L D 08/30/17 05:00 Phosphorus 2.6 mg/dL (2.5-4.9) 08/29/17 14:40 Magnesium 1.7 mg/dL (1.8-2.4) L 08/29/17 14:40 Total Bilirubin 1.1 mg/dL (0.2-1.0) H 08/30/17 05:00 AST 20 U/L (15-37) 08/30/17 05:00 ALT 38 U/L (12-78) 08/30/17 05:00 Alkaline Phosphatase 40 U/L (45-117) L 08/30/17 05:00 Creatine Kinase 121 IU/L (39-308) 08/29/17 02:48 Troponin I < 0.02 ng/ml (0.00-0.05) 08/29/17 14:40 Total Protein 5.8 g/dl (6.4-8.2) L 08/30/17 05:00 Albumin 3.1 g/dl (3.4-5.0) L 08/30/17 05:00 Total Amylase 30 U/L (25-115) 08/29/17 02:48 Lipase 85 U/L (73-393) 08/29/17 02:48 - ....Imaging EKG: Pending Other: Pending (Echo) Problem List - Problems (1) Acute appendicitis Assessment/Plan: 37 yo male PMH heart valve as an , down's, s/p lap cholecystectomy 10 years ago presents with abdominal pain and vomiting after dinner last night. Reviewed the Ct scan with in house radiologist who feels that there may prominent appendix. POD #1 s/p Laparoscopic appendectomy NPO and IVF hydration changed to maintenance IV antibiotcs per ID to continue culture temp spikes f/u Echo this morning f/u medical recommendations can be transferred to telemetry This patient is in improved but guarded condition. Time spent reviewing chart, examining patient, talking with providers and/or family and documentation is 35 minutes Code(s): K35.80 - UNSPECIFIED ACUTE APPENDICITIS Qualifiers: Acute appendicitis type: with localized peritonitis Qualified Code(s): K35.3 - Acute appendicitis with localized peritonitis (2) Abdominal pain in male Code(s): R10.9 - UNSPECIFIED ABDOMINAL PAIN (3) Abdominal pain of unknown etiology Code(s): R10.9 - UNSPECIFIED ABDOMINAL PAIN (4) Dehydration Code(s): E86.0 - DEHYDRATION (5) Obesity (BMI 30-39.9) Code(s): E66.9 - OBESITY, UNSPECIFIED (6) Down's syndrome not affecting current episode of care Code(s): [id number] -
[2017-08-30] MEDS ORDERED: ACETAMINOPHEN 1000 MG/100 ML VIAL (NON FORMULARY) IVPB ONE (09:23)
[2017-08-30] MEDS ORDERED: NITROGLYCERIN 25MG/D5W 250ML 25 MG/250 ML ML IVPB ONE (09:30)
[2017-08-30] MEDS ORDERED: D5-1/2NS+20 MEQ KCL - 20 MEQ/1,000 ML INFUS.BAG IV SCH (10:00)
--- NOTE | 2017-08-30 10:14 | PN ---
Progress Note, Physician Chief Complaint: patient awake alert sitting in chair by the bed in ICU NPo on ivf ngt tube in place no hester incentive spirometry - Current Medication List Current Medications: Active Medications Acetaminophen (Ofirmev Injection -) 1,000 mg IVPB ONCE ONE Stop: 08/30/17 09:24 Chlorhexidine Gluconate (Hibiclens For Decolonization -) 1 applic TP HS ALEX Last Admin: 08/29/17 22:16 Dose: 1 applic Piperacillin Sod/Tazobactam (Sod 3.375 gm/ Dextrose) 50 mls @ 100 mls/hr IVPB Q6H ALEX PRN Reason: Protocol Last Admin: 08/30/17 06:14 Dose: 100 mls/hr Potassium Chloride/Dextrose/Sod Cl (D5-1/2ns+20 Meq Kcl -) 20 meq in 1,000 mls @ 125 mls/hr IV ASDIR [facility] Morphine Sulfate (Morphine Sulfate) 4 mg IVPUSH Q4H PRN PRN Reason: PAIN Last Admin: 08/30/17 07:46 Dose: 4 mg Mupirocin (Bactroban Ointment (For Decolonization) -) 1 applic NS BID [facility] Stop: 09/03/17 21:59 Last Admin: 08/30/17 09:21 Dose: 1 applic Ondansetron HCl (Zofran Injection) 4 mg IVPUSH Q6H PRN PRN Reason: NAUSEA AND/OR VOMITING - Objective Vital Signs: Vital Signs Temperature 98.9 F 08/30/17 06:00 Pulse Rate 96 H 08/30/17 08:00 Respiratory Rate 19 08/30/17 08:00 Blood Pressure 132/60 08/30/17 08:00 O2 Sat by Pulse Oximetry (%) 100 08/29/17 20:00 Constitutional: Yes: Calm Cardiovascular: Yes: Regular Rate and Rhythm, S1, S2 Respiratory: Yes: CTA Bilaterally, Diminished (at bases) Gastrointestinal: Yes: Soft, Other (incisons drain in place) Edema: No Neurological: Yes: Alert, Oriented (to name) Labs: CBC, BMP 08/30/17 05:00 08/30/17 05:00 INR, PTT INR 1.32 (0.82-1.09) H 08/29/17 08:55 Problem List - Problems (1) Acute appendicitis Assessment/Plan: NPO ivf ngt tube in palce wbc trending down on iv abx CAROLYN drain in place DVT ppx incentive spirometry hester removed transfer to med/surg Code(s): K35.80 - UNSPECIFIED ACUTE APPENDICITIS Qualifiers: Acute appendicitis type: with localized peritonitis Qualified Code(s): K35.3 - Acute appendicitis with localized peritonitis (2) Leukocytosis Assessment/Plan: ID on board iv abx cultures pending temp of 100.1 yesterday still elevated wbc but trending down Code(s): D72.829 - ELEVATED WHITE BLOOD CELL COUNT, UNSPECIFIED (3) Heart valve replaced Assessment/Plan: echo pending cardio consult pending Code(s): Z95.2 - PRESENCE OF PROSTHETIC HEART VALVE
[2017-08-30 10:55] LABS: MAGNESIUM 2.3 mg/dL (1.8-2.4)
--- NOTE | 2017-08-30 12:15 | PN ---
Teaching Attending Note Name of Resident: Robbi Keita ATTENDING PHYSICIAN STATEMENT I saw and evaluated the patient. I reviewed the resident's note and discussed the case with the resident. I agree with the resident's findings and plan as documented. SUBJECTIVE: Patient seen and examined in the ICU. Awake and alert. Reports some abdominal tenderness. No CP or SOB. NGT intact. Intake & Output 08/27/17 08/28/17 08/29/17 08/30/17 23:59 23:59 23:59 23:59 Intake Total 8675 1600 Output Total 2450 810 Balance 6225 790 Weight 240 lb Last Vital Signs Temp Pulse Resp BP Pulse Ox 102.7 F H 112 H 20 94/67 94 L 08/30/17 10:00 08/30/17 10:16 08/30/17 10:00 08/30/17 10:00 08/30/17 10:16 Active Medications Chlorhexidine Gluconate (Hibiclens For Decolonization -) 1 applic TP HS ALEX Last Admin: 08/29/17 22:16 Dose: 1 applic Piperacillin Sod/Tazobactam (Sod 3.375 gm/ Dextrose) 50 mls @ 100 mls/hr IVPB Q6H ALEX PRN Reason: Protocol Last Admin: 08/30/17 06:14 Dose: 100 mls/hr Potassium Chloride/Dextrose/Sod Cl (D5-1/2ns+20 Meq Kcl -) 20 meq in 1,000 mls @ 125 mls/hr IV ASDIR ALEX Last Admin: 08/30/17 10:49 Dose: 125 mls/hr Morphine Sulfate (Morphine Sulfate) 4 mg IVPUSH Q4H PRN PRN Reason: PAIN Last Admin: 08/30/17 07:46 Dose: 4 mg Mupirocin (Bactroban Ointment (For Decolonization) -) 1 applic NS BID [facility] Stop: 09/03/17 21:59 Last Admin: 08/30/17 09:21 Dose: 1 applic Ondansetron HCl (Zofran Injection) 4 mg IVPUSH Q6H PRN PRN Reason: NAUSEA AND/OR VOMITING Constitutional: Yes: Awake and alert, NAD Eyes: Yes: WNL, Conjunctiva Clear, EOM Intact HENT: Yes: WNL, Atraumatic, Normocephalic Neck: Yes: WNL, Supple, Trachea Midline Cardiovascular: Yes: Regular Rate and Rhythm Respiratory: Yes: Diminished at the bases Gastrointestinal: Yes: dressing intact, mild distention, hypoactive BS, CAROLYN intact with serosanguinous drainage ...Rectal Exam: Yes: Deferred Renal/: Yes: WNL Breast(s): Yes: WNL Musculoskeletal: Yes: WNL Extremities: Yes: WNL Edema: No Peripheral Pulses WNL: Yes Integumentary: Yes: Incision Wound/Incision: Yes: Clean/Dry, Well Approximated, [place] Intact, Steri Strips Neurological: Yes: WNL, Oriented ...Motor Strength: WNL Psychiatric: Yes: WNL, Alert, Oriented Labs: Laboratory Results - last 24 hr 08/29/17 08/29/17 08/29/17 14:40 14:40 14:40 WBC 22.3 H RBC 3.74 L D Hgb 12.4 D Hct 36.7 D MCV 98.0 H MCH 33.1 MCHC 33.7 RDW 15.2 Plt Count 226 D MPV 9.1 Total Counted 100 Neutrophils % No Result Required. Neutrophils % (Manual) 88.0 H Band Neutrophils % 9.0 Lymphocytes % No Result Required. Lymphocytes % (Manual) 1.0 L D Monocytes % Monocytes % (Manual) 1 L Eosinophils % Basophils % Differential Comment Platelet Estimate Adequate Platelet Comment Sodium 141 Potassium 4.4 Chloride 110 H Carbon Dioxide 26 Anion Gap 5 L BUN 18 D Creatinine 1.0 Creat Clearance w eGFR > 60 Random Glucose 128 H Lactic Acid Calcium 6.4 L* D Phosphorus 2.6 Magnesium 1.7 L Total Bilirubin 1.2 H AST 20 D ALT 37 D Alkaline Phosphatase 40 L D Troponin I < 0.02 Total Protein 5.6 L D Albumin 3.1 L 08/29/17 08/30/17 08/30/17 14:40 05:00 05:00 WBC 19.6 H RBC 3.68 L Hgb 12.3 Hct 36.0 MCV 97.9 H MCH 33.3 MCHC 34.0 RDW 15.0 Plt Count 230 MPV 9.5 Total Counted Neutrophils % 89.4 H Neutrophils % (Manual) Band Neutrophils % Lymphocytes % 4.5 L Lymphocytes % (Manual) Monocytes % 5.2 Monocytes % (Manual) Eosinophils % 0.5 Basophils % 0.4 Differential Comment Platelet Estimate Platelet Comment Sodium 142 Potassium 4.2 Chloride 105 Carbon Dioxide 30 Anion Gap 7 L BUN 12 D Creatinine 0.9 Creat Clearance w eGFR > 60 Random Glucose 101 D Lactic Acid 1.3 Calcium 7.7 L D Phosphorus Magnesium 2.3 D Total Bilirubin 1.1 H AST 20 ALT 38 Alkaline Phosphatase 40 L Troponin I Total Protein 5.8 L Albumin 3.1 L 08/30/17 05:00 WBC RBC Hgb Hct MCV MCH MCHC RDW Plt Count MPV Total Counted Neutrophils % Neutrophils % (Manual) Band Neutrophils % Lymphocytes % Lymphocytes % (Manual) Monocytes % Monocytes % (Manual) Eosinophils % Basophils % Differential Comment Platelet Estimate Platelet Comment Sodium Potassium Chloride Carbon Dioxide Anion Gap BUN Creatinine Creat Clearance w eGFR Random Glucose Lactic Acid Calcium Phosphorus Magnesium Cancelled Total Bilirubin AST ALT Alkaline Phosphatase Troponin I Total Protein Albumin Problem List - Problems (1) Acute appendicitis Code(s): K35.80 - UNSPECIFIED ACUTE APPENDICITIS (2) Dehydration Code(s): E86.0 - DEHYDRATION (3) H/O ventricular septal defect Code(s): Z87.74 - PERSONAL HISTORY OF CONGENITAL MALFORM OF HEART AND CIRC SYS (4) Heart valve replaced Code(s): Z95.2 - PRESENCE OF PROSTHETIC HEART VALVE (5) Sepsis Code(s): A41.9 - SEPSIS, UNSPECIFIED ORGANISM Qualifiers: Sepsis type: sepsis due to unspecified organism Qualified Code(s): A41.9 - Sepsis, unspecified organism Assessment/Plan POD # 1 Laparoscopic Appendectomy Downs Syndrome MVR Remote cholecystectomy PLAN: IVF ABX per ID O2 as needed Replete lytes Pain control Zofran prn for N/V Post-Op Lap wound care Monitor CAROLYN Drain Monitor UOP Normal transfusion thresholds VTE prophylaxis PPI Dr Jimenez Critical care time spent in reviewing chart, evaluating patient and formulating plan - 36 minutes.
--- NOTE | 2017-08-30 12:52 | PN ---
Physical Exam: SUBJECTIVE: The patient is a 37M with a PMH of Down's Syndrome, childhood VSD and MVR s/p repair, who was found to have appendicitis and is s/p appendectomy. During the procedure, there was found to be purulent drainage from his appendix. There is also a questionable SBO. No acute events overnight. The patient spiked a temperature of 102F. See A/P. The patient has no complaints. OBJECTIVE: Vital Signs Period Temp Pulse Resp BP Sys/Emanuel Pulse Ox Last 24 Hr 98.3 F-102.7 F 80-112 14-21 94-132/53-76 94-100 GENERAL: The patient is awake, alert, and fully oriented, in no acute distress. HEAD: Normal with no signs of trauma. EYES: PERRL, extraocular movements intact, sclera anicteric, conjunctiva clear. No ptosis. NECK: Trachea midline, full range of motion, supple. LUNGS: Breath sounds equal, clear to auscultation bilaterally, no wheezes, no crackles, no accessory muscle use. HEART: Regular rate and rhythm, S1, S2 without murmur, rub or gallop. ABDOMEN: Soft, nontender, nondistended, normoactive bowel sounds, no guarding, no rebound, no hepatosplenomegaly, no masses. EXTREMITIES: 2+ pulses, warm, well-perfused, no edema. NEUROLOGICAL: Cranial nerves II through XII grossly intact. Normal speech, gait not observed. PSYCH: Normal mood, normal affect. SKIN: Warm, dry, normal turgor, no rashes or lesions noted Laboratory Results - last 24 hr 08/29/17 08/29/17 08/29/17 14:40 14:40 14:40 WBC 22.3 H RBC 3.74 L D Hgb 12.4 D Hct 36.7 D MCV 98.0 H MCH 33.1 MCHC 33.7 RDW 15.2 Plt Count 226 D MPV 9.1 Total Counted 100 Neutrophils % No Result Required. Neutrophils % (Manual) 88.0 H Band Neutrophils % 9.0 Lymphocytes % No Result Required. Lymphocytes % (Manual) 1.0 L D Monocytes % Monocytes % (Manual) 1 L Eosinophils % Basophils % Differential Comment Platelet Estimate Adequate Platelet Comment Sodium 141 Potassium 4.4 Chloride 110 H Carbon Dioxide 26 Anion Gap 5 L BUN 18 D Creatinine 1.0 Creat Clearance w eGFR > 60 Random Glucose 128 H Lactic Acid Calcium 6.4 L* D Phosphorus 2.6 Magnesium 1.7 L Total Bilirubin 1.2 H AST 20 D ALT 37 D Alkaline Phosphatase 40 L D Troponin I < 0.02 Total Protein 5.6 L D Albumin 3.1 L 08/29/17 08/30/17 08/30/17 14:40 05:00 05:00 WBC 19.6 H RBC 3.68 L Hgb 12.3 Hct 36.0 MCV 97.9 H MCH 33.3 MCHC 34.0 RDW 15.0 Plt Count 230 MPV 9.5 Total Counted Neutrophils % 89.4 H Neutrophils % (Manual) Band Neutrophils % Lymphocytes % 4.5 L Lymphocytes % (Manual) Monocytes % 5.2 Monocytes % (Manual) Eosinophils % 0.5 Basophils % 0.4 Differential Comment Platelet Estimate Platelet Comment Sodium 142 Potassium 4.2 Chloride 105 Carbon Dioxide 30 Anion Gap 7 L BUN 12 D Creatinine 0.9 Creat Clearance w eGFR > 60 Random Glucose 101 D Lactic Acid 1.3 Calcium 7.7 L D Phosphorus Magnesium 2.3 D Total Bilirubin 1.1 H AST 20 ALT 38 Alkaline Phosphatase 40 L Troponin I Total Protein 5.8 L Albumin 3.1 L 08/30/17 05:00 WBC RBC Hgb Hct MCV MCH MCHC RDW Plt Count MPV Total Counted Neutrophils % Neutrophils % (Manual) Band Neutrophils % Lymphocytes % Lymphocytes % (Manual) Monocytes % Monocytes % (Manual) Eosinophils % Basophils % Differential Comment Platelet Estimate Platelet Comment Sodium Potassium Chloride Carbon Dioxide Anion Gap BUN Creatinine Creat Clearance w eGFR Random Glucose Lactic Acid Calcium Phosphorus Magnesium Cancelled Total Bilirubin AST ALT Alkaline Phosphatase Troponin I Total Protein Albumin Active Medications Generic Name Dose Route Start Last Admin Trade Name Freq PRN Reason Stop Dose Admin Chlorhexidine Gluconate 1 applic 08/29/17 22:00 08/29/17 22:16 Hibiclens For Decolonization - TP 1 applic HS ALEX Administration Piperacillin Sod/Tazobactam 50 mls @ 100 mls/hr 08/30/17 00:00 08/30/17 06:14 Sod 3.375 gm/ Dextrose IVPB 100 mls/hr Q6H ALEX Administration Protocol Potassium Chloride/Dextrose/Sod Cl 20 meq in 1,000 mls @ 125 mls/hr 08/30/17 10:00 08/30/17 10:49 D5-1/2ns+20 Meq Kcl - IV 125 mls/hr ASDIR ALEX Administration Morphine Sulfate 4 mg 08/29/17 14:55 08/30/17 07:46 Morphine Sulfate IVPUSH 4 mg Q4H PRN Administration PAIN Mupirocin 1 applic 08/29/17 22:00 08/30/17 09:21 Bactroban Ointment (For Decolonization) - NS 09/03/17 21:59 1 applic BID ALEX Administration Ondansetron HCl 4 mg 08/29/17 14:55 Zofran Injection IVPUSH Q6H PRN NAUSEA AND/OR VOMITING ASSESSMENT/PLAN: The patient is a 37M with a PMH of Down's syndrome who presented to the ED with appendicitis-like symptoms and was found to have purulent appendicitis s/p appy and questionable SBO. Neuro: - A&O - Responsive, answering questions appropriately CV: - None Pulm: - None Renal: - None : - None GI: Appendicitis s/p uncomplicated appendectomy - Currently on zosyn for G- coverage - Will give tylenol for fever and add flagyl for broader spectrum coverage SBO - Seen on CT, will continue NPO status ID: Appendectomy with fever - Tylenol for fever control - Will add flagyl Hem/Onc: - None Endocrine: - None MSK: - None PPX: - None 2/2 surgery FEN (Fluids, electrolytes, nutrition): - NPO 2/2 questionable SBO - D5 1/2 NS with 20mEq KCl to hydrate and replenish K Dispo: - Transfer to [address] [place] [address] for further monitoring
--- NOTE | 2017-08-30 13:27 | EKG ---
Test Reason : Blood Pressure : / mmHG Vent. Rate : 094 BPM Atrial Rate : 094 BPM P-R Int : 166 ms QRS Dur : 096 ms QT Int : 352 ms P-R-T Axes : 038 -01 035 degrees QTc Int : 440 ms NORMAL SINUS RHYTHM NORMAL ECG WHEN COMPARED WITH ECG OF 29-AUG-2017 04:45, NO SIGNIFICANT CHANGE WAS FOUND Confirmed by MARY LOU PEDERSON MD ([id number]) on 08/30/2017 1:27:07 PM Referred By: Confirmed By:MARY LOU PEDERSON MD
[2017-08-30] MEDS ORDERED: METRONIDAZOLE 500 MG PREMIXED 500 MG/100 ML MG IVPB SCH ×2 (13:45→18:00)
--- NOTE | 2017-08-30 14:01 | PN ---
Progress Note, Physician Chief Complaint: Pt. pain controlled, no GA complaints. - Current Medication List Current Medications: Active Medications Chlorhexidine Gluconate (Hibiclens For Decolonization -) 1 applic TP HS [facility] Last Admin: 08/29/17 22:16 Dose: 1 applic Piperacillin Sod/Tazobactam (Sod 3.375 gm/ Dextrose) 50 mls @ 100 mls/hr IVPB Q6H ALEX PRN Reason: Protocol Last Admin: 08/30/17 13:14 Dose: 100 mls/hr Potassium Chloride/Dextrose/Sod Cl (D5-1/2ns+20 Meq Kcl -) 20 meq in 1,000 mls @ 125 mls/hr IV ASDIR ALEX Last Admin: 08/30/17 10:49 Dose: 125 mls/hr Metronidazole (Flagyl 500mg Premixed Ivpb -) 500 mg in 100 mls @ 100 mls/hr IVPB Q8H-IV ALEX Morphine Sulfate (Morphine Sulfate) 4 mg IVPUSH Q4H PRN PRN Reason: PAIN Last Admin: 08/30/17 07:46 Dose: 4 mg Mupirocin (Bactroban Ointment (For Decolonization) -) 1 applic NS BID [facility] Stop: 09/03/17 21:59 Last Admin: 08/30/17 09:21 Dose: 1 applic Ondansetron HCl (Zofran Injection) 4 mg IVPUSH Q6H PRN PRN Reason: NAUSEA AND/OR VOMITING - Objective Vital Signs: Vital Signs Temperature 102.7 F H 08/30/17 10:00 Pulse Rate 126 H 08/30/17 12:00 Respiratory Rate 18 08/30/17 12:00 Blood Pressure 113/75 08/30/17 12:00 O2 Sat by Pulse Oximetry (%) 94 L 08/30/17 12:20 Constitutional: Yes: Well Nourished, No Distress, Calm Musculoskeletal: Yes: WNL Neurological: Yes: WNL, Alert, Oriented ...Motor Strength: WNL Labs: CBC, BMP 08/30/17 05:00 08/30/17 05:00 INR, PTT INR 1.32 (0.82-1.09) H 08/29/17 08:55 Assessment/Plan POD#1 s/p laparoscopic appendectomy under GA. doing well D/C from anesthesia care.
[2017-08-30] MEDS ORDERED: DOCUSATE SODIUM 100 MG CAPSULE (FP) PO SCH (14:15)
--- NOTE | 2017-08-30 14:22 | EKG ---
Test Reason : Blood Pressure : / mmHG Vent. Rate : 111 BPM Atrial Rate : 111 BPM P-R Int : 162 ms QRS Dur : 090 ms QT Int : 334 ms P-R-T Axes : 028 -24 063 degrees QTc Int : 454 ms SINUS TACHYCARDIA POSSIBLE LEFT ATRIAL ENLARGEMENT T WAVE ABNORMALITY, CONSIDER ANTERIOR ISCHEMIA ABNORMAL ECG NO PREVIOUS ECGS AVAILABLE Confirmed by MARY LOU PEDERSON MD ([id number]) on 08/30/2017 2:22:04 PM Referred By: DR BARNHART Confirmed By:MARY LOU PEDERSON MD
--- NOTE | 2017-08-30 15:33 | CON.CARD ---
Consult Consult Specialty:: Cardiology Referred by:: Dr Cartwright Reason for Consultation:: mvr - History of Present Illness Chief Complaint: abd pain History of Present Illness: 37yo male PMH mitral valve replacement and VSD closure as child, down sydrome, s /p cholecytectomy admitted with abdominal pain found with appendicitis underwent surgery with some perforation. Still with fever. Denies cardiac symptomatology at baseline. No cp, sob, orthopnea, pnd or edema. Exercise tolerance is good. 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 ) Cardio/Vascular: Yes: Other (heart valve replacemnt-vsd) Pulmonary: No: Asthma, Bronchitis, Cancer, COPD, O2 Dependent, Pneumonia, Previously Intubated, Pulmonary Embolus, Pulmonary Fibrosis, Sleep Apnea, Other Gastrointestinal: Yes: Other (s/p cholecystectomy) Renal/: No: Renal Failure, Renal Inusuff, BPH, Cancer, Hematuria, Hemodialysis , Neurogenic Bladder, Renal Calculi, UTI, Other Infectious Disease: No: AIDS, C-Diff, Herpes Zoster, HIV, MRSA, STD's, Tuberculosis, VREF, Other Psych: No: Addictions, Anxiety, Bipolar, Depression, Panic, Psychosis, Schizophrenia, Other Musculoskeletal: No: Bursitis, Chronic low back pain, Hemiparesis, Hemiplegia, Osteoarthritis, Paraplegia, Other Rheumatology: No: Fibromyalgia, Gout, Lupus, Rheumatoid Arthritis, Sarcoidosis, Vasculitis, Other ENT: No: Allergic Rhinitis, Sinusitis, Other Endocrine: No: [place]'s Disease, [place]'s Disease, Diabetes Insipidus, Diabetes Mellitus, Hyperparathyroidism, Hyperthyroidism, Hypothyroidism, Osteopenia, SIADH, Other Dermatology: No: Basal Cell, Cellulitis, Eczema, Melanoma, Psoriasis, Squamous Cell, Other - Past Surgical History Past Surgical History: Yes: Cholecystectomy, Valve Replacement - Alcohol/Substance Use Hx Alcohol Use: No History of Substance Use: reports: None - Smoking History Smoking history: Never smoked - Social History History of Recent Travel: No (visiting from [place]) Home Medications - Allergies Allergies/Adverse Reactions: Allergies Allergy/AdvReac Type Severity Reaction Status Date / Time No Known Allergies Allergy Unverified 08/29/17 03:37 - Home Medications Home Medications: Ambulatory Orders NK [No Known Home Medication] 08/29/17 Family Disease History - Family Disease History Family History: Unable to Obtain Vital Signs: Vital Signs Temperature 102.7 F H 08/30/17 10:00 Pulse Rate 126 H 08/30/17 12:00 Respiratory Rate 18 08/30/17 12:00 Blood Pressure 113/75 08/30/17 12:00 O2 Sat by Pulse Oximetry (%) 94 L 08/30/17 12:20 Constitutional: Yes: Well Nourished, No Distress Eyes: Yes: Conjunctiva Clear, EOM Intact HENT: Yes: Atraumatic Neck: Yes: Supple, Trachea Midline Respiratory: Yes: CTA Bilaterally Gastrointestinal: Yes: Normal Bowel Sounds, Soft Cardiovascular: Yes: Regular Rate and Rhythm JVD: No Carotid Bruit: No PMI: Non-Displaced Heart Sounds: Yes: S1, S2 Edema: No Peripheral Pulses WNL: Yes - Other Data Labs, Other Data: CBC, BMP 08/30/17 05:00 08/30/17 05:00 INR, PTT INR 1.32 (0.82-1.09) H 08/29/17 08:55 Troponin, BNP 08/29/17 14:40 Troponin I < 0.02 Troponin, BNP 08/29/17 14:40 Troponin I < 0.02 Problem List - Problems (1) H/O ventricular septal defect Assessment/Plan: No evidence of VSD on examination. echo pending. Code(s): Z87.74 - PERSONAL HISTORY OF CONGENITAL MALFORM OF HEART AND CIRC SYS (2) Heart valve replaced Assessment/Plan: Echo pending, no evidence of valvular dysfunction on examination. will follow post echo. Code(s): Z95.2 - PRESENCE OF PROSTHETIC HEART VALVE
[2017-08-30] MEDS ORDERED: morphine SULFATE 4 MG/ML VIAL IVPUSH PRN (16:36)
[2017-08-30] MEDS ORDERED: ONDANSETRON 4 MG/2 ML VIAL IVPUSH PRN (16:36)
[2017-08-30] MEDS ORDERED: PT OWN MED DRAWER 7, Y5N ONE (17:21)
[2017-08-30] MEDS: D5-1/2NS+20 MEQ KCL - 20 MEQ/1,000 ML INFUS.BAG IV SCH (17:39)
[2017-08-30] MEDS ORDERED: HEPARIN NA (PORCINE) 5,000 UNITS/ML 1ML VIAL SQ SCH (18:00)
--- NOTE | 2017-08-30 18:12 | PN ---
Progress Note, Physician Chief Complaint: Infectious Disease f/u: History of Present Illness: Pt seen and examined. Is s/p lap appendectomy POD#1. Currently alert and fully responsive. Pain controlled. Fever 102.7F this morning, currently afebrile. - Current Medication List Current Medications: Active Medications Chlorhexidine Gluconate (Hibiclens For Decolonization -) 1 applic TP HS [facility] Heparin Sodium (Porcine) (Heparin -) 5,000 unit SQ TID [facility] Potassium Chloride/Dextrose/Sod Cl (D5-1/2ns+20 Meq Kcl -) 20 meq in 1,000 mls @ 125 mls/hr IV ASDIR [facility] Last Admin: 08/30/17 17:39 Dose: 125 mls/hr Piperacillin Sod/Tazobactam (Sod 3.375 gm/ Dextrose) 50 mls @ 100 mls/hr IVPB Q6H [facility] PRN Reason: Protocol Last Admin: 08/30/17 17:38 Dose: 100 mls/hr Metronidazole (Flagyl 500mg Premixed Ivpb -) 500 mg in 100 mls @ 100 mls/hr IVPB Q8H-IV [facility] Last Admin: 08/30/17 17:38 Dose: 100 mls/hr Morphine Sulfate (Morphine Sulfate) 4 mg IVPUSH Q4H PRN PRN Reason: PAIN Mupirocin (Bactroban Ointment (For Decolonization) -) 1 applic NS BID [facility] Stop: 09/03/17 21:59 Ondansetron HCl (Zofran Injection) 4 mg IVPUSH Q6H PRN PRN Reason: NAUSEA AND/OR VOMITING - Objective Vital Signs: Vital Signs Temperature 99.7 F H 08/30/17 14:00 Pulse Rate 73 08/30/17 16:00 Respiratory Rate 18 08/30/17 16:00 Blood Pressure 108/55 08/30/17 16:00 O2 Sat by Pulse Oximetry (%) 94 L 08/30/17 12:20 Constitutional: Yes: No Distress, Calm HENT: Yes: Other (NGT in place) Neck: Yes: Supple Cardiovascular: Yes: Regular Rate and Rhythm Respiratory: Yes: Regular Gastrointestinal: Yes: Other (Bowel sounds present, drain with sero-sanguinous fluid, dressing intact) Extremities: Yes: WNL Integumentary: Yes: WNL Wound/Incision: Yes: Clean/Dry Labs: CBC, BMP 08/30/17 05:00 08/30/17 05:00 INR, PTT INR 1.32 (0.82-1.09) H 08/29/17 08:55 Microbiology 08/29/17 08:44 Urine - Urine Clean Catch Urine Culture - Final NO GROWTH OBTAINED Blood culture results pending Problem List - Problems (1) Leukocytosis Code(s): D72.829 - ELEVATED WHITE BLOOD CELL COUNT, UNSPECIFIED (2) Fever Code(s): R50.9 - FEVER, UNSPECIFIED (3) Acute appendicitis Code(s): K35.80 - UNSPECIFIED ACUTE APPENDICITIS Qualifiers: Acute appendicitis type: with localized peritonitis Qualified Code(s): K35.3 - Acute appendicitis with localized peritonitis (4) H/O ventricular septal defect Code(s): Z87.74 - PERSONAL HISTORY OF CONGENITAL MALFORM OF HEART AND CIRC SYS (5) Heart valve replaced Code(s): Z95.2 - PRESENCE OF PROSTHETIC HEART VALVE (6) Sepsis Code(s): A41.9 - SEPSIS, UNSPECIFIED ORGANISM Qualifiers: Sepsis type: sepsis due to unspecified organism Qualified Code(s): A41.9 - Sepsis, unspecified organism (7) Tachycardia Code(s): R00.0 - TACHYCARDIA, UNSPECIFIED Assessment/Plan Acute Appendicitis s/p lap appendectomy POD#1 VSD repaired/prosthetic valve --wbc trending down, cont. monitor --monitor temperatures -- continue Zosyn for now, has adequate anaerobic coverage -- f/u blood cultures, Echo report above d/w Dr. Garay cc time: 35 min
[2017-08-30] MEDS ORDERED: ACETAMINOPHEN 1000 MG/100 ML VIAL (NON FORMULARY) IVPB PRN (18:34)
[2017-08-30] MEDS: HEPARIN NA (PORCINE) 5,000 UNITS/ML 1ML VIAL SQ SCH (21:41)
[2017-08-30] MEDS: CHLORHEXIDINE GLUCONATE 4% CLEANSER FOR DECOLONIZATION TP SCH (21:42)
[2017-08-31] MEDS: PIPERACILLIN/TAZOB 3.375 GM 3.375 GM in DEXTROSE 5%-WATER - 50 ML IVPB SCH ×4 (00:44→17:28)
[2017-08-31] MEDS: D5-1/2NS+20 MEQ KCL - 20 MEQ/1,000 ML INFUS.BAG IV SCH (05:00)
[2017-08-31] MEDS: HEPARIN NA (PORCINE) 5,000 UNITS/ML 1ML VIAL SQ SCH ×3 (05:56→21:11)
--- NOTE | 2017-08-31 07:30 | PN ---
Progress Note, Physician Chief Complaint: abdominal pain History of Present Illness: 37yo male PMH mitral valve replacement, obesity, down's syndrome, s/p cholecystectomy presents to ED with nausea and vomiting after dinner. diagnosed with acute perforated appendicitis POD#2 s/p laparoscopic appendectomy. reports only yovani-incisonal pain, in bed, using incentive spirometer, no flatus or BM. - Current Medication List Current Medications: Active Medications Acetaminophen (Ofirmev Injection -) 1,000 mg IVPB Q6H PRN PRN Reason: FEVER OR PAIN Chlorhexidine Gluconate (Hibiclens For Decolonization -) 1 applic TP HS [facility] Last Admin: 08/30/17 21:42 Dose: Not Given Heparin Sodium (Porcine) (Heparin -) 5,000 unit SQ TID [facility] Last Admin: 08/31/17 05:56 Dose: 5,000 unit Potassium Chloride/Dextrose/Sod Cl (D5-1/2ns+20 Meq Kcl -) 20 meq in 1,000 mls @ 125 mls/hr IV ASDIR [facility] Last Admin: 08/31/17 05:00 Dose: 125 mls/hr Piperacillin Sod/Tazobactam (Sod 3.375 gm/ Dextrose) 50 mls @ 100 mls/hr IVPB Q6H [facility] PRN Reason: Protocol Last Admin: 08/31/17 05:55 Dose: 100 mls/hr Morphine Sulfate (Morphine Sulfate) 4 mg IVPUSH Q4H PRN PRN Reason: PAIN Mupirocin (Bactroban Ointment (For Decolonization) -) 1 applic NS BID [facility] Stop: 09/03/17 21:59 Last Admin: 08/30/17 21:42 Dose: Not Given Ondansetron HCl (Zofran Injection) 4 mg IVPUSH Q6H PRN PRN Reason: NAUSEA AND/OR VOMITING - Objective Vital Signs: Vital Signs Temperature 99.1 F 08/31/17 05:54 Pulse Rate 99 H 08/31/17 05:54 Respiratory Rate 221 H 08/31/17 05:54 Blood Pressure 126/68 08/31/17 05:54 O2 Sat by Pulse Oximetry (%) 97 08/30/17 21:00 Vital Signs Period Temp Pulse Resp BP Sys/Emanuel Pulse Ox Last 24 Hr 99 F-102.7 F 73-126 18-221 94-132/55-75 94-97 Intake & Output 08/30/17 08/30/17 08/31/17 15:59 23:59 07:59 Intake Total 1800 1450 Output Total 15 815 570 Balance -15 985 880 Intake: IV 1500 1250 D5-1/2NS+20 MEQ KCL - 20 1250 1250 meq In 1,000 ml @ 125 mls /hr IV ASDIR [facility] Rx#: [id number] Lactated Ringers Solution 250 1,000 ml @ 125 mls/hr IV ASDIR [facility] Rx#: [id number] IVPB 300 200 Output: Gastric Drainage 200 150 Drainage 15 15 20 Right Lower Abdomen 15 15 20 Urine 600 400 [place] 200 Void 400 400 Other: Voiding Method Urinal Urinal Urinal Constitutional: Yes: No Distress, Calm, Obese Eyes: Yes: Conjunctiva Clear, EOM Intact HENT: Yes: Atraumatic, Normocephalic Neck: Yes: Supple, Trachea Midline Cardiovascular: Yes: Regular Rate and Rhythm, S1, S2 Respiratory: Yes: Regular, CTA Bilaterally Gastrointestinal: Yes: Soft, Abdomen, Obese, Hypoactive Bowel Sounds, Tenderness (incisonal tenderness). No: Tenderness, Epigastrium, Tenderness, Rebound ...Rectal Exam: Yes: Deferred Musculoskeletal: No: Muscle Pain, Muscle Weakness Edema: No Peripheral Pulses WNL: Yes Wound/Incision: Yes: Clean/Dry, Steri Strips, Open to air, Dressing Removed, Other (CAROLYN in suprapubic position is serosanguinous only 20ml now) Neurological: Yes: Alert, Oriented Psychiatric: Yes: Alert, Oriented Labs: INR, PTT INR 1.32 (0.82-1.09) H 08/29/17 08:55 CBC,CMP WBC 18.8 K/mm3 (4.0-10.0) H 08/31/17 06:30 RBC 3.70 M/mm3 (4.00-5.60) L 08/31/17 06:30 Hgb 12.1 GM/dL (11.7-16.9) 08/31/17 06:30 Hct 36.2 % (35.4-49) 08/31/17 06:30 MCV 97.9 fl (80-96) H 08/31/17 06:30 MCH 32.7 pg (25.7-33.7) 08/31/17 06:30 MCHC 33.4 g/dl (32.0-35.9) 08/31/17 06:30 RDW 15.1 % (11.9-15.9) 08/31/17 06:30 Plt Count 204 K/MM3 (134-434) 08/31/17 06:30 MPV 9.1 fl (7.5-11.1) 08/31/17 06:30 Total Counted 100 08/29/17 14:40 Neutrophils % 88.2 % (42.8-82.8) H 08/31/17 06:30 Neutrophils % (Manual) 88.0 % (42.8-82.8) H 08/29/17 14:40 Band Neutrophils % 9.0 % 08/29/17 14:40 Lymphocytes % 5.1 % (8-40) L 08/31/17 06:30 Lymphocytes % (Manual) 1.0 % (8-40) L D 08/29/17 14:40 Monocytes % 6.3 % (3.8-10.2) 08/31/17 06:30 Monocytes % (Manual) 1 % (3.8-10.2) L 08/29/17 14:40 Eosinophils % 0.0 % (0-4.5) D 08/31/17 06:30 Basophils % 0.4 % (0-2.0) 08/31/17 06:30 Differential Comment 08/29/17 14:40 Platelet Estimate Adequate 08/29/17 14:40 Platelet Comment 08/29/17 14:40 Sodium 141 mmol/L (136-145) 08/31/17 06:30 Potassium 4.1 mmol/L (3.5-5.1) 08/31/17 06:30 Chloride 103 mmol/L (98-107) 08/31/17 06:30 Carbon Dioxide 32 mmol/L (21-32) 08/31/17 06:30 Anion Gap 6 (8-16) L 08/31/17 06:30 BUN 11 mg/dL (7-18) 08/31/17 06:30 Creatinine 0.8 mg/dL (0.7-1.3) 08/31/17 06:30 Creat Clearance w eGFR > 60 (>60) 08/31/17 06:30 Random Glucose 116 mg/dL (74-106) H 08/31/17 06:30 Lactic Acid 1.3 mmol/L (0.4-2.0) 08/29/17 14:40 Calcium 8.3 mg/dL (8.5-10.1) L 08/31/17 06:30 Phosphorus 1.8 mg/dL (2.5-4.9) L D 08/31/17 06:30 Magnesium 1.9 mg/dL (1.8-2.4) 08/31/17 06:30 Total Bilirubin 1.5 mg/dL (0.2-1.0) H D 08/31/17 06:30 AST 17 U/L (15-37) 08/31/17 06:30 ALT 32 U/L (12-78) 08/31/17 06:30 Alkaline Phosphatase 44 U/L (45-117) L 08/31/17 06:30 Creatine Kinase 121 IU/L (39-308) 08/29/17 02:48 Troponin I < 0.02 ng/ml (0.00-0.05) 08/29/17 14:40 Total Protein 5.9 g/dl (6.4-8.2) L 08/31/17 06:30 Albumin 2.9 g/dl (3.4-5.0) L 08/31/17 06:30 Total Amylase 30 U/L (25-115) 08/29/17 02:48 Lipase 85 U/L (73-393) 08/29/17 02:48 Problem List - Problems (1) Acute appendicitis Assessment/Plan: 37 yo male PMH heart valve as an , down's, s/p lap cholecystectomy 10 years ago presents with abdominal pain and vomiting after dinner last night. Reviewed the Ct scan with in house radiologist who feels that there may prominent appendix. POD #2 s/p Laparoscopic appendectomy, no BM or flatus yet. Transferred to telemetry sam been stable and improving, leukocytosis trending down, now 18. NGT discontinued inadvertently, will keep out start clears as tolerated continue IV antibiotcs per ID - zosyn Fever workup f/u medical recommendations OOB and ambulate today encourage incentive spirometer Code(s): K35.80 - UNSPECIFIED ACUTE APPENDICITIS Qualifiers: Acute appendicitis type: with localized peritonitis Qualified Code(s): K35.3 - Acute appendicitis with localized peritonitis (2) Abdominal pain in male Code(s): R10.9 - UNSPECIFIED ABDOMINAL PAIN (3) Abdominal pain of unknown etiology Code(s): R10.9 - UNSPECIFIED ABDOMINAL PAIN (4) Dehydration Code(s): E86.0 - DEHYDRATION (5) Obesity (BMI 30-39.9) Code(s): E66.9 - OBESITY, UNSPECIFIED (6) Down's syndrome not affecting current episode of care Code(s): JFK6365 - (7) Postsurgical fever Assessment/Plan: experiencing post op fever 100-102 for the last 24 hours, wounds are clean, abdominal pain is diminished f/u blood cultures urine culture Chest xray encourage incentive spirometry OOB and ambulate continue IV antibiotics Code(s): R50.82 - POSTPROCEDURAL FEVER (8) Sepsis Code(s): A41.9 - SEPSIS, UNSPECIFIED ORGANISM Qualifiers: Sepsis type: sepsis due to unspecified organism Qualified Code(s): A41.9 - Sepsis, unspecified organism
[2017-08-31 07:32] LABS: ALBUMIN 2.9 g/dl (3.4-5.0); ALK PHOS 44 U/L (45-117); ANION GAP 6 (8-16); BILIRUBIN,TOTAL 1.5 mg/dL (0.2-1.0); CALCIUM 8.3 mg/dL (8.5-10.1); CO2 32 mmol/L (21-32); CREATININE 0.8 mg/dL (0.7-1.3); GLUCOSE,RANDOM 116 mg/dL (74-106); MAGNESIUM 1.9 mg/dL (1.8-2.4); PHOSPHOROUS 1.8 mg/dL (2.5-4.9); SGOT/AST 17 U/L (15-37); SGPT/ALT 32 U/L (12-78); TOT PROT 5.9 g/dl (6.4-8.2)
[2017-08-31 07:33] LABS: BASOPHIL 0.4 % (0-2.0); MCH 32.7 pg (25.7-33.7); MCHC 33.4 g/dl (32.0-35.9); MEAN CELL VOLUME 97.9 fl (80-96); MEAN PLT VOLUME 9.1 fl (7.5-11.1); NEUTROPHILS 88.2 % (42.8-82.8); PLATELET COUNT 204 K/MM3 (134-434); RDW 15.1 % (11.9-15.9); WHITE BLOOD COUNT 18.8 K/mm3 (4.0-10.0)
--- NOTE | 2017-08-31 08:37 | PN ---
Progress Note, Physician - Current Medication List Current Medications: Active Medications Acetaminophen (Ofirmev Injection -) 1,000 mg IVPB Q6H PRN PRN Reason: FEVER OR PAIN Chlorhexidine Gluconate (Hibiclens For Decolonization -) 1 applic TP HS [facility] Last Admin: 08/30/17 21:42 Dose: Not Given Heparin Sodium (Porcine) (Heparin -) 5,000 unit SQ TID [facility] Last Admin: 08/31/17 05:56 Dose: 5,000 unit Potassium Chloride/Dextrose/Sod Cl (D5-1/2ns+20 Meq Kcl -) 20 meq in 1,000 mls @ 125 mls/hr IV ASDIR [facility] Last Admin: 08/31/17 05:00 Dose: 125 mls/hr Piperacillin Sod/Tazobactam (Sod 3.375 gm/ Dextrose) 50 mls @ 100 mls/hr IVPB Q6H [facility] PRN Reason: Protocol Last Admin: 08/31/17 05:55 Dose: 100 mls/hr Morphine Sulfate (Morphine Sulfate) 4 mg IVPUSH Q4H PRN PRN Reason: PAIN Mupirocin (Bactroban Ointment (For Decolonization) -) 1 applic NS BID [facility] Stop: 09/03/17 21:59 Last Admin: 08/30/17 21:42 Dose: Not Given Ondansetron HCl (Zofran Injection) 4 mg IVPUSH Q6H PRN PRN Reason: NAUSEA AND/OR VOMITING - Objective Vital Signs: Vital Signs Temperature 99.1 F 08/31/17 05:54 Pulse Rate 99 H 08/31/17 05:54 Respiratory Rate 221 H 08/31/17 05:54 Blood Pressure 126/68 08/31/17 05:54 O2 Sat by Pulse Oximetry (%) 97 08/30/17 21:00 Labs: CBC, BMP 08/31/17 06:30 08/31/17 06:30 INR, PTT INR 1.32 (0.82-1.09) H 08/29/17 08:55 Problem List - Problems (1) Acute appendicitis Assessment/Plan: IV ABX ivf ngt out wbc trending down on iv abx CAROLYN drain in place DVT ppx incentive spirometry hester removed Code(s): K35.80 - UNSPECIFIED ACUTE APPENDICITIS Qualifiers: Acute appendicitis type: with localized peritonitis Qualified Code(s): K35.3 - Acute appendicitis with localized peritonitis (2) Sepsis Assessment/Plan: ABOVE abx id on case Code(s): A41.9 - SEPSIS, UNSPECIFIED ORGANISM Qualifiers: Sepsis type: sepsis due to unspecified organism Qualified Code(s): A41.9 - Sepsis, unspecified organism (3) Heart valve replaced Assessment/Plan: ECHO PENIDNG CARDIO Code(s): Z95.2 - PRESENCE OF PROSTHETIC HEART VALVE (4) H/O ventricular septal defect Assessment/Plan: ECHO Code(s): Z87.74 - PERSONAL HISTORY OF CONGENITAL MALFORM OF HEART AND CIRC SYS (5) Abdominal pain in male Code(s): R10.9 - UNSPECIFIED ABDOMINAL PAIN
[2017-08-31] MEDS: MUPIROCIN 2% TOPICAL OINTMENT FOR DECOLONIZATION NS SCH ×2 (10:02→21:10)
--- NOTE | 2017-08-31 11:12 | OP ---
DATE OF OPERATION: 08/29/2017 ATTENDING SURGEON: Jessee Garay MD SPACECRAFT SYSTEMS ENGINEER: No one. ANESTHESIA: Hugh Barrera MD ANESTHESIA TYPE: General with local. Local consisting of 0.5% Marcaine. A total of 10 mL given at the port sites. ESTIMATED BLOOD LOSS: 10 mL INTRAVENOUS FLUID GIVEN: 1800 mL PREOPERATIVE DIAGNOSIS: Acute appendicitis. POSTOPERATIVE DIAGNOSIS: Acute perforated appendicitis. PROCEDURE: Laparoscopic appendectomy. INDICATIONS: Patient is a 37-year-old male, morbidly obese, Down syndrome, with a history of a repaired VSD and mitral valve replacement, presented with abdominal pain which was acute in onset after a meal the preceding night. He was noted to have abdominal pain with profuse vomiting. CT scan confirmed the presence of an inflamed appendix. He was counseled along with his family regarding risks, benefits, and alternatives and signed informed consent, had his questions answered to his satisfaction along with a discussion with the extended family including his parents and uncle who is a platform material handling supervisor. After signing informed consent, he was then prepared for emergent surgery. DESCRIPTION OF PROCEDURE: Patient was brought to the operating room, placed in supine position on the operating table with the left arm tucked and the right arm extended 90 degrees perpendicular by his axis. The patient was induced with general anesthesia, endotracheally intubated without incident. Then, had a Del [place] catheter placed. He was given intravenous antibiotics perioperatively and had the anterior abdominal wall shaved, prepped, and draped in standard surgical fashion. At this point, with the patient anesthetized, we proceeded to prep and drape the patient. A formal timeout was completed. At which point, surgical markings were made at the umbilicus, suprapubic, and left lower quadrant in standard fashion for an appendectomy. After a formal timeout with all parties in agreement, we proceeded then with a Cesar entry into the supraumbilical area. We proceeded with a 15-blade scalpel deepening and widening the subcutaneous tissue and fat to the median raphe of the rectus in the midline. When identified, it was entered and then elevated with Anisa clamps to make a first entry into the abdomen. This was done bluntly with a finger, clearing all aspects. We made an attempt to avoid the previous scar from his laparoscopic cholecystectomy which was in the supraumbilical position. We introduced a 12-mm Cesar into the space we had created after placing a 0 Vicryl figure-of-8 suture for future closure. With the Cesar in place, the balloon was inflated, and a pneumoperitoneum was established at 15 mmHg. With the pneumoperitoneum established and the patient then placed into a feet-up position to allow for the bowel to slide out of the way, the abdomen was inspected. It was clear that there was a large amount of intraabdominal fat. The omentum was caked into the right lower quadrant. It was mobilized briefly with position. We then established second and third trocar sites at the suprapubic position and the left lower quadrant under direct visualization. With those 5-mm ports installed, we were able to use soft bowel graspers and a standard grasper to mobilize the cecum and identify the appendix. It was clear at this point that the base and the ileocecal junction were identified. We then made our first attempt to clear a window between the mesoappendix and the base of the appendix at the cecum. With the anatomy clearly defined and the appendix still adherent to the sidewall, we made an attempt to control the base. A blue load Endo MY stapler was used to transect the base of the appendix, allowing for further dissection of the mesoappendix. We proceeded in this fashion to gently traction the appendix. It was clear at this point that the mid-portion of the appendix was somewhat necrotic, and there was leakage of pus without interruption of the wall of the appendix. It was thick and purulent. This area was suctioned, allowing for further dissection of the mesoappendix. We then, clearing all vital anatomy away from the site, were able to fire a stapler just adjacent to the cecum along the mesoappendix as it was adherent to the wall. We had two separate firings, allowing the mesoappendix finally to be transected and the tip of the appendix was friable and necrotic. With this completely dissected and the appendix now free in the abdomen, we were able to retrieve the appendix via the umbilical Cesar with an Endo Catch bag. The site was then irrigated copiously with 1.5 L of sterile irrigation fluid until all purulent effluent was suctioned clean, and the remainder of the irrigation was clear. With this completed and the appendix removed from the abdomen, the pneumoperitoneum was relieved and trocars removed under direct visualization. We then proceeded with closure of the umbilical port by tying our figure-of-8, first ensuring that there were no abdominal viscera interposed. The skin was cleaned. The skin was then closed with 4-0 Monocryl in running subcuticular fashion at each site after irrigating the trocar sites themselves. The skin was cleaned. Sterile dressings were placed. The patient was awoken from general anesthesia, having tolerated the procedure well. Decision was made to keep the NG tube and Del [place] as it was expected the patient would have a systemic inflammatory response. He tolerated the procedure well. He was transferred to ICU for additional monitoring. MD YASIR Bliss/[id number]
--- NOTE | 2017-08-31 13:54 | PN ---
Progress Note, Physician Chief Complaint: no new complaints tele negative History of Present Illness: 37yo male PMH mitral valve replacement and VSD closure as child, down sydrome, s /p cholecytectomy admitted with abdominal pain found with appendicitis underwent surgery with some perforation. Still with fever. Denies cardiac symptomatology at baseline. No cp, sob, orthopnea, pnd or edema. Exercise tolerance is good. Echo 08/31/17 normal EF, mild MR - Current Medication List Current Medications: Active Medications Acetaminophen (Ofirmev Injection -) 1,000 mg IVPB Q6H PRN PRN Reason: FEVER OR PAIN Chlorhexidine Gluconate (Hibiclens For Decolonization -) 1 applic TP HS [facility] Last Admin: 08/30/17 21:42 Dose: Not Given Heparin Sodium (Porcine) (Heparin -) 5,000 unit SQ TID [facility] Last Admin: 08/31/17 05:56 Dose: 5,000 unit Piperacillin Sod/Tazobactam (Sod 3.375 gm/ Dextrose) 50 mls @ 100 mls/hr IVPB Q6H [facility] PRN Reason: Protocol Last Admin: 08/31/17 11:30 Dose: 100 mls/hr Potassium Chloride/Dextrose/Sod Cl (D5-1/2ns+20 Meq Kcl -) 20 meq in 1,000 mls @ 75 mls/hr IV ASDIR [facility] Mupirocin (Bactroban Ointment (For Decolonization) -) 1 applic NS BID [facility] Stop: 09/03/17 21:59 Last Admin: 08/31/17 10:02 Dose: Not Given Ondansetron HCl (Zofran Injection) 4 mg IVPUSH Q6H PRN PRN Reason: NAUSEA AND/OR VOMITING - Objective Vital Signs: Vital Signs Temperature 98.6 F 08/31/17 08:05 Pulse Rate 104 H 08/31/17 08:05 Respiratory Rate 18 08/31/17 09:00 Blood Pressure 112/72 08/31/17 08:05 O2 Sat by Pulse Oximetry (%) 93 L 08/31/17 09:00 Constitutional: Yes: No Distress, Calm Eyes: Yes: Conjunctiva Clear, EOM Intact HENT: Yes: Atraumatic Neck: Yes: Supple, Trachea Midline Cardiovascular: Yes: Regular Rate and Rhythm Respiratory: Yes: CTA Bilaterally Gastrointestinal: Yes: Normal Bowel Sounds, Soft Musculoskeletal: Yes: WNL Extremities: Yes: WNL Edema: No Labs: CBC, BMP 08/31/17 06:30 08/31/17 06:30 INR, PTT INR 1.32 (0.82-1.09) H 08/29/17 08:55 Problem List - Problems (1) H/O ventricular septal defect Assessment/Plan: No evidence of VSD on examination. echo normal. No further testing is needed. Code(s): Z87.74 - PERSONAL HISTORY OF CONGENITAL MALFORM OF HEART AND CIRC SYS (2) Heart valve replaced Assessment/Plan: Echo normal, no evidence of valvular dysfunction on examination. There is no evidence of Mitral Valve surgery Will see prn. Code(s): Z95.2 - PRESENCE OF PROSTHETIC HEART VALVE
[2017-08-31] MEDS ORDERED: D5-1/2NS+20 MEQ KCL - 20 MEQ/1,000 ML INFUS.BAG IV SCH (14:00)
[2017-08-31] MEDS ORDERED: PT OWN MED DRAWER 7, Y5N ONE (17:07)
--- NOTE | 2017-08-31 18:00 | PN ---
Progress Note, Physician History of Present Illness: Pt is fully alert. Denies having any specific complaints. States he feels well. Has not had a BM yet. States he is not in pain. Tmax since last night 99.8F. Noted to have mild flushing of face and some erythema of abd wall. - Current Medication List Current Medications: Active Medications Acetaminophen (Ofirmev Injection -) 1,000 mg IVPB Q6H PRN PRN Reason: FEVER OR PAIN Chlorhexidine Gluconate (Hibiclens For Decolonization -) 1 applic TP HS [facility] Last Admin: 08/30/17 21:42 Dose: Not Given Heparin Sodium (Porcine) (Heparin -) 5,000 unit SQ TID [facility] Last Admin: 08/31/17 14:16 Dose: 5,000 unit Piperacillin Sod/Tazobactam (Sod 3.375 gm/ Dextrose) 50 mls @ 100 mls/hr IVPB Q6H [facility] PRN Reason: Protocol Last Admin: 08/31/17 17:28 Dose: 100 mls/hr Potassium Chloride/Dextrose/Sod Cl (D5-1/2ns+20 Meq Kcl -) 20 meq in 1,000 mls @ 75 mls/hr IV ASDIR [facility] Last Admin: 08/31/17 14:16 Dose: 75 mls/hr Mupirocin (Bactroban Ointment (For Decolonization) -) 1 applic NS BID [facility] Stop: 09/03/17 21:59 Last Admin: 08/31/17 10:02 Dose: Not Given Ondansetron HCl (Zofran Injection) 4 mg IVPUSH Q6H PRN PRN Reason: NAUSEA AND/OR VOMITING - Objective Vital Signs: Vital Signs Temperature 99.1 F 08/31/17 17:00 Pulse Rate 102 H 08/31/17 14:00 Respiratory Rate 16 08/31/17 14:00 Blood Pressure 114/68 08/31/17 14:00 O2 Sat by Pulse Oximetry (%) 93 L 08/31/17 09:00 Constitutional: Yes: No Distress HENT: Yes: Other (mild facial flush) Neck: Yes: Supple Cardiovascular: Yes: Tachycardia Respiratory: Yes: Regular Gastrointestinal: Yes: Distention, Hypoactive Bowel Sounds, Other (CAROLYN drain with serosanguinous fluid, dressings intact) Wound/Incision: Yes: Dressing Dry and Intact Neurological: Yes: Alert, Oriented Labs: CBC, BMP 08/31/17 06:30 08/31/17 06:30 INR, PTT INR 1.32 (0.82-1.09) H 08/29/17 08:55 Problem List - Problems (1) Leukocytosis Code(s): D72.829 - ELEVATED WHITE BLOOD CELL COUNT, UNSPECIFIED (2) Fever Code(s): R50.9 - FEVER, UNSPECIFIED (3) Acute appendicitis Code(s): K35.80 - UNSPECIFIED ACUTE APPENDICITIS Qualifiers: Acute appendicitis type: with localized peritonitis Qualified Code(s): K35.3 - Acute appendicitis with localized peritonitis (4) H/O ventricular septal defect Code(s): Z87.74 - PERSONAL HISTORY OF CONGENITAL MALFORM OF HEART AND CIRC SYS (5) Heart valve replaced Code(s): Z95.2 - PRESENCE OF PROSTHETIC HEART VALVE (6) Sepsis Code(s): A41.9 - SEPSIS, UNSPECIFIED ORGANISM Qualifiers: Sepsis type: sepsis due to unspecified organism Qualified Code(s): A41.9 - Sepsis, unspecified organism (7) Tachycardia Code(s): R00.0 - TACHYCARDIA, UNSPECIFIED Assessment/Plan 37 y.o. male with appendicitis s/p lap appendectomy POD#2 with leukocytosis and fever. Tmax 99.8F today. Wbc is trending down. Has some abd wall rash/erythema possibly allergic reaction to Zosyn - will d/c Zosyn, switch to Meropenem - suggest send drain fluid for culture - repeat cbc, monitor temperature trend appears stable at this time, cont. close monitoring
[2017-08-31] MEDS: MEROPENEM 1 GM PUSH 1 GM/20 ML DISP.SYRIN IVPUSH SCH (18:48)
[2017-08-31] MEDS: CHLORHEXIDINE GLUCONATE 4% CLEANSER FOR DECOLONIZATION TP SCH (21:10)
[2017-09-01] MEDS: MEROPENEM 1 GM PUSH 1 GM/20 ML DISP.SYRIN IVPUSH SCH ×3 (01:02→17:33)
[2017-09-01] MEDS: HEPARIN NA (PORCINE) 5,000 UNITS/ML 1ML VIAL SQ SCH ×3 (05:56→21:48)
--- NOTE | 2017-09-01 08:05 | PN ---
Progress Note, Physician Chief Complaint: abdominal pain History of Present Illness: 37yo male PMH mitral valve replacement, obesity, down's syndrome, s/p cholecystectomy presents to ED with nausea and vomiting after dinner. diagnosed with acute perforated appendicitis POD#3 s/p laparoscopic appendectomy. reports only yovani-incisonal pain, in bed, using incentive spirometer, reports a BM and normal flatus yesterday, only low grade fevers, Tmax 99.4. - Current Medication List Current Medications: Active Medications Acetaminophen (Ofirmev Injection -) 1,000 mg IVPB Q6H PRN PRN Reason: FEVER OR PAIN Chlorhexidine Gluconate (Hibiclens For Decolonization -) 1 applic TP HS [facility] Last Admin: 08/31/17 21:10 Dose: Not Given Heparin Sodium (Porcine) (Heparin -) 5,000 unit SQ TID [facility] Last Admin: 09/01/17 05:56 Dose: 5,000 unit Potassium Chloride/Dextrose/Sod Cl (D5-1/2ns+20 Meq Kcl -) 20 meq in 1,000 mls @ 75 mls/hr IV ASDIR [facility] Last Admin: 08/31/17 14:16 Dose: 75 mls/hr Meropenem (Merrem (Restricted To Id) -) 1 gm in 20 mls @ 240 mls/hr IVPUSH Q8H- IV ALEX PRN Reason: Protocol Last Admin: 09/01/17 01:02 Dose: 240 mls/hr Mupirocin (Bactroban Ointment (For Decolonization) -) 1 applic NS BID [facility] Stop: 09/03/17 21:59 Last Admin: 08/31/17 21:10 Dose: Not Given Ondansetron HCl (Zofran Injection) 4 mg IVPUSH Q6H PRN PRN Reason: NAUSEA AND/OR VOMITING - Objective Vital Signs: Vital Signs Temperature 98.2 F 09/01/17 06:00 Pulse Rate 80 09/01/17 06:00 Respiratory Rate 18 09/01/17 06:00 Blood Pressure 126/73 09/01/17 06:00 O2 Sat by Pulse Oximetry (%) 99 09/01/17 06:00 Vital Signs Period Temp Pulse Resp BP Sys/Emanuel Pulse Ox Last 24 Hr 98.2 F-99.4 F 80-104 16-18 112-127/58-75 93-99 Intake & Output 08/31/17 09/01/17 09/01/17 23:59 07:59 15:59 Intake Total 1830 1300 Output Total 700 650 Balance 1130 650 Intake: IV 1250 900 D5-1/2NS+20 MEQ KCL - 20 875 meq In 1,000 ml @ 125 mls /hr IV ASDIR ALEX Rx#: [id number] D5-1/2NS+20 MEQ KCL - 20 375 900 meq In 1,000 ml @ 75 mls/ hr IV ASDIR ALEX Rx#: [id number] IVPB 100 100 Oral 480 300 Output: Drainage 50 Right Lower Abdomen 50 Urine 700 600 Void 700 600 Other: Voiding Method Urinal Toilet # Unmeasured Voids Void 1 Bowel Movement Yes # Bowel Movements 1 Constitutional: Yes: No Distress, Calm, Obese Eyes: Yes: Conjunctiva Clear, EOM Intact HENT: Yes: Atraumatic, Normocephalic Neck: Yes: Supple, Trachea Midline Cardiovascular: Yes: Regular Rate and Rhythm, S1, S2 Respiratory: Yes: Regular, CTA Bilaterally Gastrointestinal: Yes: Normal Bowel Sounds, Soft, Abdomen, Obese, Tenderness ( incisonal tenderness) ...Rectal Exam: Yes: Deferred Genitourinary: No: Bladder Distention, CVA Tenderness - Left, CVA Tenderness - Right Musculoskeletal: No: Muscle Pain, Muscle Weakness Extremities: No: Cool, Cyanosis Edema: No Peripheral Pulses WNL: Yes Peripheral Pulses: Left Radial: 2+, Right Radial: 2+, Left Doralis Pedis: 2+, Right Dorsalis Pedis: 2+, Left Femoral: 2+, Right Femoral: 2+ Wound/Incision: Yes: Clean/Dry, Well Approximated, Steri Strips, Other ( waterfilled bllisters at the umbilicus and the LLQ port site, CAROLYN 50ml serosanguinous). No: Draining, Reddened Neurological: Yes: Alert, Oriented Psychiatric: Yes: Alert, Oriented Labs: CBC, BMP 08/31/17 06:30 08/31/17 06:30 INR, PTT INR 1.32 (0.82-1.09) H 08/29/17 08:55 Problem List - Problems (1) Acute appendicitis Assessment/Plan: 37 yo male PMH heart valve as an , down's, s/p lap cholecystectomy 10 years ago presents with abdominal pain and vomiting after dinner last night. Reviewed the Ct scan with in house radiologist who feels that there may prominent appendix. POD #3 s/p Laparoscopic appendectomy, having BM and flatus, low grade temps, Meropenem started. He has been stable and improving, leukocytosis trending down, now 13. Regular diet saline lock IVF D/C CAROLYN drain continue IV antibiotcs per ID - meropenem, Home regimen when leukocytosis resolves f/u medical recommendations OOB and ambulate today encourage incentive spirometer possible D/C home wednesday/wednesday Code(s): K35.80 - UNSPECIFIED ACUTE APPENDICITIS Qualifiers: Acute appendicitis type: with localized peritonitis Qualified Code(s): K35.3 - Acute appendicitis with localized peritonitis (2) Abdominal pain in male Code(s): R10.9 - UNSPECIFIED ABDOMINAL PAIN (3) Abdominal pain of unknown etiology Code(s): R10.9 - UNSPECIFIED ABDOMINAL PAIN (4) Dehydration Code(s): E86.0 - DEHYDRATION (5) Obesity (BMI 30-39.9) Code(s): E66.9 - OBESITY, UNSPECIFIED (6) Down's syndrome not affecting current episode of care Code(s): [id number] - (7) Postsurgical fever Code(s): R50.82 - POSTPROCEDURAL FEVER (8) Sepsis Code(s): A41.9 - SEPSIS, UNSPECIFIED ORGANISM Qualifiers: Sepsis type: sepsis due to unspecified organism Qualified Code(s): A41.9 - Sepsis, unspecified organism
--- NOTE | 2017-09-01 08:29 | PN ---
Progress Note, Physician History of Present Illness: LESS PAIN WANTS TO GET OUT OF BED HAD BM - Current Medication List Current Medications: Active Medications Acetaminophen (Ofirmev Injection -) 1,000 mg IVPB Q6H PRN PRN Reason: FEVER OR PAIN Chlorhexidine Gluconate (Hibiclens For Decolonization -) 1 applic TP HS [facility] Last Admin: 08/31/17 21:10 Dose: Not Given Heparin Sodium (Porcine) (Heparin -) 5,000 unit SQ TID [facility] Last Admin: 09/01/17 05:56 Dose: 5,000 unit Potassium Chloride/Dextrose/Sod Cl (D5-1/2ns+20 Meq Kcl -) 20 meq in 1,000 mls @ 75 mls/hr IV ASDIR [facility] Last Admin: 08/31/17 14:16 Dose: 75 mls/hr Meropenem (Merrem (Restricted To Id) -) 1 gm in 20 mls @ 240 mls/hr IVPUSH Q8H- IV ALEX PRN Reason: Protocol Last Admin: 09/01/17 01:02 Dose: 240 mls/hr Mupirocin (Bactroban Ointment (For Decolonization) -) 1 applic NS BID [facility] Stop: 09/03/17 21:59 Last Admin: 08/31/17 21:10 Dose: Not Given Ondansetron HCl (Zofran Injection) 4 mg IVPUSH Q6H PRN PRN Reason: NAUSEA AND/OR VOMITING - Objective Vital Signs: Vital Signs Temperature 98.2 F 09/01/17 06:00 Pulse Rate 80 09/01/17 06:00 Respiratory Rate 18 09/01/17 06:00 Blood Pressure 126/73 09/01/17 06:00 O2 Sat by Pulse Oximetry (%) 99 09/01/17 06:00 Cardiovascular: Yes: Regular Rate and Rhythm Respiratory: Yes: Regular, CTA Bilaterally Gastrointestinal: Yes: Normal Bowel Sounds, Soft, Abdomen, Obese, Distention Edema: No Labs: CBC, BMP 08/31/17 06:30 08/31/17 06:30 INR, PTT INR 1.32 (0.82-1.09) H 08/29/17 08:55 Problem List - Problems (1) Acute appendicitis Assessment/Plan: IV ABX ivf ngt out wbc trending down on iv abx CAROLYN drain out DVT ppx incentive spirometry hester removed Code(s): K35.80 - UNSPECIFIED ACUTE APPENDICITIS Qualifiers: Acute appendicitis type: with localized peritonitis Qualified Code(s): K35.3 - Acute appendicitis with localized peritonitis (2) Sepsis Assessment/Plan: ABOVE abx per id id on case Microbiology 08/29/17 19:50 Blood - Peripheral Venous Blood Culture - Preliminary NO GROWTH OBTAINED AFTER 48 HOURS, INCUBATION TO CONTINUE FOR 3 DAYS. 08/29/17 19:50 Blood - Peripheral Venous Blood Culture - Preliminary NO GROWTH OBTAINED AFTER 48 HOURS, INCUBATION TO CONTINUE FOR 3 DAYS. 08/30/17 09:40 Blood - Peripheral Venous Blood Culture - Preliminary NO GROWTH OBTAINED AFTER 24 HOURS, INCUBATION TO CONTINUE FOR 4 DAYS. 08/30/17 09:45 Blood - Peripheral Venous Blood Culture - Preliminary NO GROWTH OBTAINED AFTER 24 HOURS, INCUBATION TO CONTINUE FOR 4 DAYS. 08/29/17 08:44 Urine - Urine Clean Catch Urine Culture - Final NO GROWTH OBTAINED Code(s): A41.9 - SEPSIS, UNSPECIFIED ORGANISM Qualifiers: Sepsis type: sepsis due to unspecified organism Qualified Code(s): A41.9 - Sepsis, unspecified organism (3) Heart valve replaced Assessment/Plan: ECHO NL LV AND MILD MR CARDIO NOTED Code(s): Z95.2 - PRESENCE OF PROSTHETIC HEART VALVE (4) H/O ventricular septal defect Assessment/Plan: ECHO NOTED SEE REPORT--NL LV Code(s): Z87.74 - PERSONAL HISTORY OF CONGENITAL MALFORM OF HEART AND CIRC SYS (5) Abdominal pain in male Code(s): R10.9 - UNSPECIFIED ABDOMINAL PAIN
[2017-09-01 08:42] LABS: BASOPHIL 0.7 % (0-2.0); EOSINOPHIL 1.1 % (0-4.5); MCH 32.6 pg (25.7-33.7); MCHC 33.7 g/dl (32.0-35.9); MEAN CELL VOLUME 96.9 fl (80-96); PLATELET COUNT 221 K/MM3 (134-434); RDW 14.8 % (11.9-15.9); WHITE BLOOD COUNT 13.1 K/mm3 (4.0-10.0)
[2017-09-01 09:19] LABS: ALBUMIN 2.7 g/dl (3.4-5.0); ALK PHOS 56 U/L (45-117); ANION GAP 4 (8-16); BILIRUBIN,TOTAL 1.5 mg/dL (0.2-1.0); CALCIUM 7.9 mg/dL (8.5-10.1); CO2 34 mmol/L (21-32); CREATININE 0.8 mg/dL (0.7-1.3); GLUCOSE,RANDOM 94 mg/dL (74-106); SGOT/AST 13 U/L (15-37); SGPT/ALT 28 U/L (12-78); TOT PROT 5.8 g/dl (6.4-8.2)
[2017-09-01] MEDS: MUPIROCIN 2% TOPICAL OINTMENT FOR DECOLONIZATION NS SCH ×2 (10:02→22:00)
[2017-09-01] MEDS ORDERED: PT OWN MED DRAWER 7, Y5N ONE ×2 (10:04→16:52)
--- NOTE | 2017-09-01 14:48 | PN ---
Progress Note, Physician Chief Complaint: Infectious Disease followup: History of Present Illness: Pt feeling well today. Only minimal abd discomfort. Started eating today. Fevers resolved. Facial flushing/mild abd wall rash improved. - Current Medication List Current Medications: Active Medications Acetaminophen (Ofirmev Injection -) 1,000 mg IVPB Q6H PRN PRN Reason: FEVER OR PAIN Heparin Sodium (Porcine) (Heparin -) 5,000 unit SQ TID [facility] Last Admin: 09/01/17 14:06 Dose: 5,000 unit Meropenem (Merrem (Restricted To Id) -) 1 gm in 20 mls @ 240 mls/hr IVPUSH Q8H- IV ALEX PRN Reason: Protocol Last Admin: 09/01/17 10:11 Dose: 240 mls/hr Mupirocin (Bactroban Ointment (For Decolonization) -) 1 applic NS BID [facility] Stop: 09/03/17 21:59 Last Admin: 09/01/17 10:02 Dose: Not Given Ondansetron HCl (Zofran Injection) 4 mg IVPUSH Q6H PRN PRN Reason: NAUSEA AND/OR VOMITING - Objective Vital Signs: Vital Signs Temperature 98.9 F 09/01/17 14:00 Pulse Rate 95 H 09/01/17 14:00 Respiratory Rate 18 09/01/17 10:00 Blood Pressure 123/63 09/01/17 14:00 O2 Sat by Pulse Oximetry (%) 95 09/01/17 10:57 Constitutional: Yes: No Distress, Calm HENT: Yes: WNL Neck: Yes: Supple Cardiovascular: Yes: Regular Rate and Rhythm Respiratory: Yes: CTA Bilaterally Gastrointestinal: Yes: Normal Bowel Sounds, Soft, Distention, Other (CAROLYN drain removed) Genitourinary: Yes: WNL Extremities: Yes: WNL Integumentary: Yes: Rash (facial rash resolved, faint R abd wall rash improving) Wound/Incision: Yes: Dressing Dry and Intact Neurological: Yes: Alert, Oriented Labs: CBC, BMP 09/01/17 08:00 09/01/17 08:00 INR, PTT INR 1.32 (0.82-1.09) H 08/29/17 08:55 Microbiology 08/31/17 13:27 Urine - Urine Clean Catch Urine Culture - Final NO GROWTH OBTAINED 08/30/17 09:40 Blood - Peripheral Venous Blood Culture - Preliminary NO GROWTH OBTAINED AFTER 48 HOURS, INCUBATION TO CONTINUE FOR 3 DAYS. 08/30/17 09:45 Blood - Peripheral Venous Blood Culture - Preliminary NO GROWTH OBTAINED AFTER 48 HOURS, INCUBATION TO CONTINUE FOR 3 DAYS. 08/29/17 19:50 Blood - Peripheral Venous Blood Culture - Preliminary NO GROWTH OBTAINED AFTER 48 HOURS, INCUBATION TO CONTINUE FOR 3 DAYS. 08/29/17 19:50 Blood - Peripheral Venous Blood Culture - Preliminary NO GROWTH OBTAINED AFTER 48 HOURS, INCUBATION TO CONTINUE FOR 3 DAYS. Problem List - Problems (1) Leukocytosis Code(s): D72.829 - ELEVATED WHITE BLOOD CELL COUNT, UNSPECIFIED (2) Fever Code(s): R50.9 - FEVER, UNSPECIFIED (3) Acute appendicitis Code(s): K35.80 - UNSPECIFIED ACUTE APPENDICITIS Qualifiers: Acute appendicitis type: with localized peritonitis Qualified Code(s): K35.3 - Acute appendicitis with localized peritonitis (4) H/O ventricular septal defect Code(s): Z87.74 - PERSONAL HISTORY OF CONGENITAL MALFORM OF HEART AND CIRC SYS (5) Heart valve replaced Code(s): Z95.2 - PRESENCE OF PROSTHETIC HEART VALVE (6) Sepsis Code(s): A41.9 - SEPSIS, UNSPECIFIED ORGANISM Qualifiers: Sepsis type: sepsis due to unspecified organism Qualified Code(s): A41.9 - Sepsis, unspecified organism (7) Tachycardia Code(s): R00.0 - TACHYCARDIA, UNSPECIFIED Assessment/Plan 37 y.o. male with appendicitis s/p lap appendectomy POD#3 with resolving leukocytosis and fever. Rash improved off Zosyn - on Meropenem - repeat cbc, if decreases will switch to po antibiotics Pt clinically improving
--- NOTE | 2017-09-01 16:10 | PATH ---
Surgical Pathology Report Patient Name: MAT NEUMANN [facility]. Rec. #: [id number] /Age/Gender: 1980 (Age: 37) / M Account: [id number] Location: 4 W TELEMETRY U Taken: 08/29/2017 Received: 08/30/2017 Reported: 09/01/2017 Physicians: Jessee Garay M.D. Specimen(s) Received APPENDIX Clinical History Acute perforated appendicitis Final Diagnosis APPENDIX, LAPAROSCOPIC APPENDECTOMY: ACUTE APPENDICITIS AND PERIAPPENDICITIS. Electronically Signed Carri Ingram M.D. Gross Description Received in formalin, labeled "appendix," is a 7 cm. in length vermiform appendix with a stapled margin of resection and moderate attached fat. The serosa is sales-subramanian with adhesions and a staple line at the distal tip. Sectioning reveals an unremarkable lumen. The wall of the appendix averages 0.1 cm. in thickness. Proc Tech sections are submitted in one cassette. 08/30/2017 [facility]08/30/2017
[2017-09-02] MEDS: MEROPENEM 1 GM PUSH 1 GM/20 ML DISP.SYRIN IVPUSH SCH ×2 (01:36→11:53)
[2017-09-02 05:22] VITALS: TEMP 98
--- NOTE | 2017-09-02 07:35 | PN ---
Progress Note, Physician Chief Complaint: abdominal pain History of Present Illness: 37yo male PMH mitral valve replacement, obesity, down's syndrome, s/p cholecystectomy presents to ED with nausea and vomiting after dinner. diagnosed with acute perforated appendicitis POD#4 s/p laparoscopic appendectomy. reports only yovani-incisonal pain, in bed, using incentive spirometer, reports a BM and normal flatus, - Current Medication List Current Medications: Active Medications Acetaminophen (Ofirmev Injection -) 1,000 mg IVPB Q6H PRN PRN Reason: FEVER OR PAIN Heparin Sodium (Porcine) (Heparin -) 5,000 unit SQ TID [facility] Last Admin: 09/01/17 21:48 Dose: 5,000 unit Meropenem (Merrem (Restricted To Id) -) 1 gm in 20 mls @ 240 mls/hr IVPUSH Q8H- IV ALEX PRN Reason: Protocol Last Admin: 09/02/17 01:36 Dose: 240 mls/hr Mupirocin (Bactroban Ointment (For Decolonization) -) 1 applic NS BID [facility] Stop: 09/03/17 21:59 Last Admin: 09/01/17 22:00 Dose: Not Given Ondansetron HCl (Zofran Injection) 4 mg IVPUSH Q6H PRN PRN Reason: NAUSEA AND/OR VOMITING - Objective Vital Signs: Vital Signs Temperature 98 F 09/02/17 05:15 Pulse Rate 79 09/02/17 05:15 Respiratory Rate 20 09/02/17 05:15 Blood Pressure 124/73 09/02/17 05:15 O2 Sat by Pulse Oximetry (%) 100 09/01/17 21:00 Vital Signs Period Temp Pulse Resp BP Sys/Emanuel Pulse Ox Last 24 Hr 98 F-99.1 F 79-100 18-20 112-126/48-73 95-100 Labs: CBC, BMP 09/01/17 08:00 09/01/17 08:00 INR, PTT INR 1.32 (0.82-1.09) H 08/29/17 08:55 Problem List - Problems (1) Acute appendicitis Assessment/Plan: 37 yo male PMH heart valve as an , down's, s/p lap cholecystectomy 10 years ago presents with abdominal pain and vomiting after dinner last night. Reviewed the Ct scan with in house radiologist who feels that there may prominent appendix. POD #3 s/p Laparoscopic appendectomy, having BM and flatus, low grade temps, Meropenem started. He has been stable and improving, leukocytosis trending down, now 13. Regular diet saline lock IVF D/C CAROLYN drain continue IV antibiotcs per ID - meropenem, Home regimen when leukocytosis resolves f/u medical recommendations OOB and ambulate today encourage incentive spirometer possible D/C home wednesday/wednesday Code(s): K35.80 - UNSPECIFIED ACUTE APPENDICITIS Qualifiers: Acute appendicitis type: with localized peritonitis Qualified Code(s): K35.3 - Acute appendicitis with localized peritonitis (2) Abdominal pain in male Code(s): R10.9 - UNSPECIFIED ABDOMINAL PAIN (3) Abdominal pain of unknown etiology Code(s): R10.9 - UNSPECIFIED ABDOMINAL PAIN (4) Dehydration Code(s): E86.0 - DEHYDRATION (5) Obesity (BMI 30-39.9) Code(s): E66.9 - OBESITY, UNSPECIFIED (6) Down's syndrome not affecting current episode of care Code(s): [id number] - (7) Postsurgical fever Code(s): R50.82 - POSTPROCEDURAL FEVER (8) Sepsis Code(s): A41.9 - SEPSIS, UNSPECIFIED ORGANISM Qualifiers: Sepsis type: sepsis due to unspecified organism Qualified Code(s): A41.9 - Sepsis, unspecified organism
[2017-09-02 08:40] LABS: BASOPHIL 1.2 % (0-2.0); EOSINOPHIL 2.6 % (0-4.5); MCHC 34.1 g/dl (32.0-35.9); MEAN CELL VOLUME 96.9 fl (80-96); MEAN PLT VOLUME 9.5 fl (7.5-11.1); NEUTROPHILS 73.4 % (42.8-82.8); PLATELET COUNT 271 K/MM3 (134-434); RDW 14.6 % (11.9-15.9); WHITE BLOOD COUNT 10.5 K/mm3 (4.0-10.0)
--- NOTE | 2017-09-02 09:02 | DS ---
Physical Examination Vital Signs: Vital Signs Temperature 98 F 09/02/17 05:15 Pulse Rate 79 09/02/17 05:15 Respiratory Rate 20 09/02/17 05:15 Blood Pressure 124/73 09/02/17 05:15 O2 Sat by Pulse Oximetry (%) 100 09/01/17 21:00 Vital Signs Period Temp Pulse Resp BP Sys/Emanuel Pulse Ox Last 24 Hr 98 F-99.1 F 79-100 18-20 112-126/48-73 95-100 Constitutional: Yes: Well Nourished, No Distress, Calm, Obese, Other (very pleasant) Eyes: Yes: Conjunctiva Clear, EOM Intact Neck: Yes: Supple, Trachea Midline Cardiovascular: Yes: Regular Rate and Rhythm, Murmur (low systolic), S1, S2 Respiratory: Yes: Regular, CTA Bilaterally Gastrointestinal: Yes: Normal Bowel Sounds, Soft, Abdomen, Obese, Tenderness ( mininmal periumbilical), Other (incsions X3). No: Tenderness, Epigastrium, Tenderness, Rebound ...Rectal Exam: Yes: Deferred Renal/: No: CVA Tenderness - Left, CVA Tenderness - Right Musculoskeletal: No: Muscle Pain, Muscle Weakness Extremities: No: Cool, Cyanosis Edema: No Peripheral Pulses WNL: Yes Peripheral Pulses: Left Radial: 2+, Right Radial: 2+, Left Doralis Pedis: 2+, Right Dorsalis Pedis: 2+, Left Femoral: 2+, Right Femoral: 2+ Wound/Incision: Yes: Clean/Dry, Well Approximated, Steri Strips, Other (3 wounds healing no erytherma). No: Draining, Reddened Neurological: Yes: Alert, Oriented Psychiatric: Yes: Alert, Oriented Labs: CBC, BMP 09/02/17 07:50 09/01/17 08:00 Discharge Summary Reason For Visit: SEPSIS,TACHYCARDIA,DEHYDRATION,APPENDICITIS Current Active Problems Abdominal pain in male (Acute) Abdominal pain of unknown etiology (Acute) Acute appendicitis (Acute) Appendicitis (Acute) Dehydration (Acute) Down's syndrome not affecting current episode of care (Acute) Fever (Acute) H/O ventricular septal defect (Acute) Heart valve replaced (Acute) Leukocytosis (Acute) Obesity (BMI 30-39.9) (Acute) Postsurgical fever (Acute) Sepsis (Acute) Tachycardia (Acute) Procedures: Principal: laparoscopic appendectomy Hospital Course: 37yo male PMH mitral valve replacement, obesity, down's syndrome, s/p cholecystectomy presents to ED with nausea and vomiting after dinner. diagnosed with acute perforated appendicitis. Post operatively he was observed in the ICU over night given his significant cardiac history. He began to resolve his leukocytosis from 25 to today 10.5 with no shift. He had post operative fevers of 102 that resolved as antibiotics were adjusted. POD#4 s/p laparoscopic appendectomy her reports only yovani-incisional pain, he is tolerating a regular diet, ambulating, voiding, and having his usual flatus and BM. CAROLYN drain was removed yesterday her is using incentive spirometer, and feels much improved. He will be discharged for followup in 2 weeks. Condition: Improved - Instructions Diet, Activity, Other Instructions: Postoperative instructions: You had a laparoscopic appendectomy on 08/29/[address] Jessee Garay of [facility]. Activity: Resume your usual activities gradually, but no heavy exertion or lifting more than 10-15 pounds for 1 month. The steristirps will fall off by themselves. You may shower daily starting then, just pat the incision areas dry. Eat lightly at first, but advance to your usual diet as tolerated. Pain: For pain, you may use and alternate Tylenol (acetaminophen) and/or ibuprofen every 6 hours each as needed; this means that you can take one OR the other at 3-hour intervals. If you are prescribed a Tylenol/narcotic combination for severe pain, use it instead of plain Tylenol as needed and switch back when your pain starts decreasing. Do not take more than 4000mg of acetaminophen in a day. Take medications as prescribed or indicated on the labeling. Follow-up: Call Dr. Garay' office at [phone] to make your postop appointment (Wednesday ~2 weeks after surgery). Clinic is held in the [facility] on the first floor of [facility]. Call the office if you have: * increasing pain not responsive to pain medication * fever of 101F or higher * vomiting * unusual or increasing bleeding or drainage from wounds * increasing redness or swelling at wound sites * inability to urinate Also, see your primary medical doctor within 1-2 weeks. Referrals: STAFF,NOT ON [Primary Care Provider] - Disposition: HOME - Home Medications Comprehensive Discharge Medication List: Ambulatory Orders NK [No Known Home Medication] 08/29/17
--- NOTE | 2017-09-02 09:03 | PN ---
Progress Note, Physician History of Present Illness: LESS PAIN OUT OF BED HAD BM - Current Medication List Current Medications: Active Medications Acetaminophen (Ofirmev Injection -) 1,000 mg IVPB Q6H PRN PRN Reason: FEVER OR PAIN Heparin Sodium (Porcine) (Heparin -) 5,000 unit SQ TID [facility] Last Admin: 09/01/17 21:48 Dose: 5,000 unit Meropenem (Merrem (Restricted To Id) -) 1 gm in 20 mls @ 240 mls/hr IVPUSH Q8H- IV ALEX PRN Reason: Protocol Last Admin: 09/02/17 01:36 Dose: 240 mls/hr Mupirocin (Bactroban Ointment (For Decolonization) -) 1 applic NS BID [facility] Stop: 09/03/17 21:59 Last Admin: 09/01/17 22:00 Dose: Not Given Ondansetron HCl (Zofran Injection) 4 mg IVPUSH Q6H PRN PRN Reason: NAUSEA AND/OR VOMITING - Objective Vital Signs: Vital Signs Temperature 98 F 09/02/17 05:15 Pulse Rate 79 09/02/17 05:15 Respiratory Rate 20 09/02/17 05:15 Blood Pressure 124/73 09/02/17 05:15 O2 Sat by Pulse Oximetry (%) 100 09/01/17 21:00 Cardiovascular: Yes: Regular Rate and Rhythm Respiratory: Yes: Regular, CTA Bilaterally Gastrointestinal: Yes: Normal Bowel Sounds, Soft. No: Tenderness Labs: CBC, BMP 09/02/17 07:50 09/01/17 08:00 INR, PTT INR 1.32 (0.82-1.09) H 08/29/17 08:55 Problem List - Problems (1) Acute appendicitis Assessment/Plan: IV ABX TO PO PER ID OFF ivf ngt out wbc trending down__10 CAROLYN drain out DVT ppx incentive spirometry hester removed Code(s): K35.80 - UNSPECIFIED ACUTE APPENDICITIS Qualifiers: Acute appendicitis type: with localized peritonitis Qualified Code(s): K35.3 - Acute appendicitis with localized peritonitis (2) Sepsis Code(s): A41.9 - SEPSIS, UNSPECIFIED ORGANISM Qualifiers: Sepsis type: sepsis due to unspecified organism Qualified Code(s): A41.9 - Sepsis, unspecified organism (3) Heart valve replaced Assessment/Plan: ECHO NL LV AND MILD MR CARDIO NOTED Code(s): Z95.2 - PRESENCE OF PROSTHETIC HEART VALVE (4) H/O ventricular septal defect Assessment/Plan: ECHO NOTED SEE REPORT--NL LV Code(s): Z87.74 - PERSONAL HISTORY OF CONGENITAL MALFORM OF HEART AND CIRC SYS (5) Abdominal pain in male Code(s): R10.9 - UNSPECIFIED ABDOMINAL PAIN
[2017-09-02] MEDS: MUPIROCIN 2% TOPICAL OINTMENT FOR DECOLONIZATION NS SCH (11:53)
[2017-09-02 15:33] VITALS: BP 122/60; PULSE 80
== END 2017-09-02 13:46 | disposition home or self-care (01) | DRG 853 ==
LOC: FER 03:00 → JERBED 11:40 → JICU 16:02 → J4W 08-30 20:18
PROC: 0DTJ4ZZ Resection of Appendix, Percutaneous Endoscopic Approach (ICD-10-PCS; principal; 2017-08-29 10:20)
DX: A41.9 Sepsis, unspecified organism (principal); K35.3 Acute appendicitis with localized peritonitis; Q90.9 Down syndrome, unspecified; E86.0 Dehydration; R50.82 Postprocedural fever; E66.9 Obesity, unspecified; Z90.49 Acquired absence of other specified parts of digestive tract; Z95.4 Presence of other heart-valve replacement; F70 Mild intellectual disabilities; Z68.38 Body mass index [BMI] 38.0-38.9, adult
CPT/HCPCS: 36415; 71010-TC; 71020-TC; 74176-TC; 80053; 81003; 82150; 82550; 83605; 83690; 83735; 84100; 84484; 85025; 85610; 85730; 86850; 86900; 86901; 87040; 87086; 88304-TC; 93005; 93010; 93306-TC; 94760; 97116-GP; 97161-GP; 99285-25; J1644